=== PATIENT | female | born 1935 | race Asian ===

== ENCOUNTER 2017-09-09 16:18 | Inpatient (IN) | payer MEDICARE, MEDICAID ==
--- NOTE | 2017-09-09 16:28 | ED Physician Chart ---
ED Chief Complaint/HPI - Patient Information Date Seen:: 09/09/17 Time Seen:: 16:10 Chief Complaint:: Delusions History of Present Illness:: onset x 3 days of delusions, uncontrolled behavior, and increased confusion; no report of trauma, H/As, S/T, neck pain, C/P, SOB, Abd. Pain, A/N/V/D/c, fever, chills, or urinary s/s Historian:: Patient, EMS Review:: Nurse's Note Reviewed, Old Chart Reviewed, EMS run form Reviewed ED Review of Systems - Review of Systems General/Constitutional: No fever, No chills, No weight loss, No weakness, No diaphoresis, No edema, No loss of appetite Skin: No skin lesions, No rash, No bruising Head: No headache, No light-headedness Eyes: No loss of vision, No pain, No diplopia ENT: No earache, No nasal drainage, No sore throat, No tinnitus Neck: No neck pain, No swelling, No thyromegaly, No stiffness, No mass noted Cardio Vascular: No chest pain, No palpitations, No PND, No orthopnea, No edema Pulmonary: No SOB, No cough, No sputum, No wheezing GI: No nausea, No vomiting, No diarrhea, No pain, No melena, No hematochezia, No constipation, No hematemesis G/U: No dysuria, No frequency, No hematuria, No nacturia Batter Mixer: No vaginal discharge, No abnormal vaginal bleed, No contraction Musculoskeletal: No bone or joint pain, No back pain, No muscle pain Endocrine: No polyuria, No polydipsia Psychiatric: Prior psych history, No depression, Anxiety, No suicidal ideation, Auditory hallucination, No visual hallucination Hematopoietic: No bruising, No lymphadenopathy Allergic/Immuno: No urticaria, No angioedema Neurological: No syncope, No focal symptoms, No weakness, No paresthesia, No headache, No seizure, No dizziness, Confusion, No vertigo ED Past Medical History - Past Medical History Obtainable: Yes Past Medical History: HTN, DM, Dyslipidemia, Dementia Family History: Diabetes Melitus, HTN Social History: Non Smoker, No Alcohol, No Drug Use, , Care Facility Surgical History: None Psychiatricy History: Schizophrenia, Dementia Medication: Reviewed ED Physical Exam - Physical Examination General/Constitutional: Awake, Well-developed, well-nourished, Alert, No distress, GCS 15, Non-toxic appearing, Ambulatory Head: Atraumatic Eyes: Lids, conjuctiva normal, PERRL, EOMI Skin: Nl inspection, No rash, No skin lesions, No ecchymosis, Well hydrated, No lymphadenopathy ENMT: External ears, nose nl, TM canals nl, Nasal exam nl, Lips, teeth, gums nl , Oropharynx nl, Tonsils nl Neck: Nontender, Full ROM w/o pain, No JVD, No nuchal rigidity, No bruit, No mass, No stridor Respiratory: Nl effort/Exclusion, Clear to Auscultation, No Wheeze/Rhonchi/Rales Cardio Vascular: RRR, No murmur, gallop, rubs, NL S1 S2, Carotid/Femoral/Distal pulses equal bilaterally GI: No tenderness/rebounding/guarding, No organomegaly, No hernia, Normal BS's, Nondistended, No mass/bruits, No McBurney tenderness : No CVA tenderness Extremities: No tenderness or effusion, Full ROM, normal strength in all extremities, No edema, Normal digits & nails Neuro/Psych: Alert/oriented, DTR's symmetric, Normal sensory exam, Normal motor strength, Judgement/insight normal, Mood normal, Normal gait, No focal deficits Other Neuro/Psych comments:: Disoriented and Confused; + Delusions; no SIs; Mood/Affect: Labile Misc: Normal back, No paraspinal tenderness ED Labs/Radiology/EKG Results - Lab Results Comments:: unremarkable - EKG Interpretations Rate & Rhythm: NSR Comments:: non-specific st-t changes ED Septic Shock - . Is Septic Shock (SBP<90, OR Lactate>4 mmol\L) present?: No ED Reassessment (Disposition) - Reassessment Reassessment Condition:: Improved - Diagnosis Diagnosis:: Dx: Delusions; Dementia; Schizophrenia; Medical Clearance; Schizo-Affective Disorder - Aftercare/Follow up Instructions Aftercare/Follow-Up Instructions:: Counseled pt regarding lab results/diagnosis & need follow up, Counseled pt & family regarding lab results/diagnosis & need follow up - Patient Disposition Discharge/Transfer:: Acute Care w/in this hosp Admitted to:: [facility] Condition at Disposition:: Stable, Improved
[2017-09-09 16:46] LABS: % BASOPHILS 0.5 % (0.0-2.0); % EOSINOPHILS 0.6 % (0.0-5.0); % LYMPHOCYTES 15.7 % (20.0-50.0); % MONOCYTES 6.8 % (2.0-10.0); % NEUTROPHILS 76.4 % (40.0-80.0); EOSINOPHILE ABSOLUTE 0.1 Th/cmm (0.1-0.4); HEMATOCRIT 40.5 % (41.0-60); HEMOGLOBIN 13.6 gm/dL (12-16); LYMPHOCYTE ABSOLUTE 1.4 Th/cmm (1.5-3.0); MEAN CELL VOLUME 92.7 fl (81-100); MEAN CORPUSCULAR HEMOGLOBIN 31.2 pg (27.0-31.0); MEAN CORPUSCULAR HGB CONC 33.6 pg (28.0-36.0); MEAN PLATELET VOLUME 6.9 fl; MONOCYTE ABSOLUTE 0.6 Th/cmm (0.3-1.0); NEUTROPHILE ABSOLUTE 6.7 Th/cmm (1.8-8.0); PLATELET COUNT 305 Th/cmm (150-400); RED BLOOD COUNT 4.37 Mil/cmm (3.80-5.20); RED CELL DISTRIBUTION WIDTH 12.2 % (11.5-20.0); WHITE BLOOD COUNT 8.8 Th/cmm (4.8-10.8)
[2017-09-09 17:01] LABS: ALB/GLOB RATIO 1.6 (1.0-1.8); ALBUMIN 4.4 gm/dL (3.7-5.3); ALKALINE PHOSPHATASE 66 U/L (34-104); ANION GAP 11.6 (7.0-16.0); BILIRUBIN,TOTAL 0.3 mg/dL (0.3-1.0); BUN - UREA NITROGEN 20 mg/dL (7-25); CALCIUM SERUM 9.8 mg/dL (8.6-10.3); CARBON DIOXIDE 24.2 mEq/L (21.0-31.0); CHLORIDE 102 mEq/L (98-107); CHOLESTEROL 136 mg/dL (<200); CREATININE - SERUM 0.7 mg/dL (0.6-1.2); GLUCOSE 105 mg/dL (70-105); HDL -HIGH DENSITY LIPOPROTEIN 60 mg/dL (23-92); POTASSIUM SERUM 3.8 mEq/L (3.5-5.1); SGOT 16 U/L (13-39); SGPT/ALT 11 U/L (7-52); SODIUM SERUM 134 mEq/L (136-145); TOTAL PROTEIN,SERUM 7.1 gm/dL (6.0-8.3); TRIGLYCERIDES 80 mg/dL (<150)
[2017-09-09 17:03] LABS: ACETAMINOPHEN < 10.0 ug/mL (10.0-30.0); SALICYLATES (ASPIRIN) < 25.0 mg/L (30.0-100.0)
[2017-09-09 19:44] LABS: A1C % 5.5 % (4.0-6.0)
[2017-09-09] MEDS ORDERED: Maalox 30 mL Cup PO PRN (20:32)
[2017-09-09] MEDS ORDERED: Magnesium Hydroxide (MOM) 30 mL UDC PO PRN (20:32)
[2017-09-09 21:28] VITALS: BP 140/66
--- NOTE | 2017-09-09 23:47 | History & Physical ---
ADMIT DATE: 09/09/2017 The patient came to the Emergency Room at [facility] complaining of having delusion for the last 3 days, uncontrolled behavior including increased confusion. The patient had a complete workup done and was admitted. The patient had no fever, no chills, no rigors, and no neck pain, no vaginal discharge. PAST MEDICAL HISTORY: History of diabetes and hypertension. PHYSICAL EXAMINATION: GENERAL: Awake, alert. The patient not in acute distress, is confused. HEAD: Normal. ENT: Normal. NECK: Supple, nontender. LUNGS: Clear. CARDIOVASCULAR SYSTEM: S1 and S2 heard. he patient is disoriented, confusion, delusion. LABORATORY DATA: The patient's labs are within normal limits. EKG showed nonspecific ST-T changes. DIAGNOSES: Delusion, dementia, schizophrenia, history of hypertension, history of diabetes was made. The patient is being admitted and I will follow along with psychiatrist and control of blood sugar as well as diabetes. JOB# [id number]
[2017-09-10] MEDS: Benztropine 1 MG TAB PO SCH ×2 (08:33→16:54)
[2017-09-10] MEDS: Multivitamin Tab PO SCH (08:34)
[2017-09-10] MEDS: Atorvastatin Calcium 10 MG TAB PO SCH (08:34)
[2017-09-10] MEDS ORDERED: RISPERIDONE PO SCH (09:00)
--- NOTE | 2017-09-10 11:34 | General Progress Note ---
Subjective - Review of Systems Events since last encounter: patient is confused denies pain Objective - Results Result Diagrams: 09/09/17 16:40 09/09/17 16:40 Recent Labs: Laboratory Last Values WBC 8.8 Th/cmm (4.8-10.8) 09/09/17 16:40 RBC 4.37 Mil/cmm (3.80-5.20) 09/09/17 16:40 Hgb 13.6 gm/dL (12-16) 09/09/17 16:40 Hct 40.5 % (41.0-60) L 09/09/17 16:40 MCV 92.7 fl (81-100) 09/09/17 16:40 MCH 31.2 pg (27.0-31.0) H 09/09/17 16:40 MCHC Differential 33.6 pg (28.0-36.0) 09/09/17 16:40 RDW 12.2 % (11.5-20.0) 09/09/17 16:40 Plt Count 305 Th/cmm (150-400) 09/09/17 16:40 MPV 6.9 fl 09/09/17 16:40 Neutrophils % 76.4 % (40.0-80.0) 09/09/17 16:40 Lymphocytes % 15.7 % (20.0-50.0) L 09/09/17 16:40 Monocytes % 6.8 % (2.0-10.0) 09/09/17 16:40 Eosinophils % 0.6 % (0.0-5.0) 09/09/17 16:40 Basophils % 0.5 % (0.0-2.0) 09/09/17 16:40 Sodium 134 mEq/L (136-145) L 09/09/17 16:40 Potassium 3.8 mEq/L (3.5-5.1) 09/09/17 16:40 Chloride 102 mEq/L (98-107) 09/09/17 16:40 Carbon Dioxide 24.2 mEq/L (21.0-31.0) 09/09/17 16:40 Anion Gap 11.6 (7.0-16.0) 09/09/17 16:40 BUN 20 mg/dL (7-25) 09/09/17 16:40 Creatinine 0.7 mg/dL (0.6-1.2) 09/09/17 16:40 Est GFR ( Amer) TNP 09/09/17 16:40 Est GFR (Non-Af Amer) TNP 09/09/17 16:40 BUN/Creatinine Ratio 28.6 09/09/17 16:40 Glucose 105 mg/dL (70-105) 09/09/17 16:40 Hemoglobin A1c % 5.5 % (4.0-6.0) 09/09/17 16:40 Calcium 9.8 mg/dL (8.6-10.3) 09/09/17 16:40 Total Bilirubin 0.3 mg/dL (0.3-1.0) 09/09/17 16:40 AST 16 U/L (13-39) 09/09/17 16:40 ALT 11 U/L (7-52) 09/09/17 16:40 Alkaline Phosphatase 66 U/L (34-104) 09/09/17 16:40 Troponin I 0.01 ng/mL (0.01-0.05) 09/09/17 16:40 Total Protein 7.1 gm/dL (6.0-8.3) 09/09/17 16:40 Albumin 4.4 gm/dL (3.7-5.3) 09/09/17 16:40 Globulin 2.7 gm/dL 09/09/17 16:40 Albumin/Globulin Ratio 1.6 (1.0-1.8) 09/09/17 16:40 Triglycerides 80 mg/dL (<150) 09/09/17 16:40 Cholesterol 136 mg/dL (<200) 09/09/17 16:40 LDL Cholesterol Direct 57 mg/dL (75-193) L 09/09/17 16:40 HDL Cholesterol 60 mg/dL (23-92) 09/09/17 16:40 TSH 1.43 uIU/ml (0.34-5.60) 09/09/17 16:40 Salicylates < 25.0 mg/L (30.0-100.0) L 09/09/17 16:40 Acetaminophen < 10.0 ug/mL (10.0-30.0) L 09/09/17 16:40 Ethyl Alcohol < 10 mg/dL (0-10) 09/09/17 16:40 - Physical Exam Vitals and I&O: Vital Signs Temp 97.6 F 09/10/17 07:05 Pulse 73 09/10/17 08:33 Resp 19 09/10/17 07:05 BP 122/60 09/10/17 08:33 Pulse Ox 99 09/10/17 07:05 Intake & Output 09/09/17 09/10/17 09/10/17 18:59 06:59 18:59 Intake Total 540 420 Balance 540 420 Weight (lbs) 46.266 kg Intake: Oral 540 420 Other: # Voids 1 1 Stool Characteristics Hard Weight Source Patient stated Active Medications: Current Medications Acetaminophen (Tylenol) 650 mg PO Q4HR PRN PRN Reason: Mild Pain / Temp above 100 Stop: 11/08/17 21:28 Al Hydrox/Mg Hydrox/Simethicone (Maalox) 30 ml PO Q6H PRN PRN Reason: GI DISTRESS Stop: 11/08/17 20:31 Amlodipine Besylate (Norvasc) 10 mg PO DAILY [facility] Stop: 11/09/17 08:59 Last Admin: 09/10/17 08:33 Dose: 10 mg Atorvastatin Calcium (Lipitor) 20 mg PO DAILY [facility] Stop: 11/09/17 08:59 Last Admin: 09/10/17 08:34 Dose: 20 mg Benztropine Mesylate (Cogentin) 1 mg PO BID [facility] Stop: 11/09/17 08:59 Last Admin: 09/10/17 08:33 Dose: 1 mg Docusate Sodium (Colace) 250 mg PO DAILY [facility] Stop: 11/09/17 08:59 Last Admin: 09/10/17 08:34 Dose: 250 mg Lorazepam (Ativan) 0.5 mg PO Q4HR PRN; Protocol PRN Reason: Anxiety Stop: 10/09/17 21:28 Magnesium Hydroxide (Milk Of Magnesia) 30 ml PO DAILY PRN PRN Reason: Constipation Stop: 11/08/17 20:31 Multivitamins/Vitamin C (Theragran) 1 tab PO DAILY [facility] Stop: 11/09/17 08:59 Last Admin: 09/10/17 08:34 Dose: 1 tab Risperidone (Risperdal) 2 mg PO BID [facility]; Protocol Stop: 11/09/17 09:14 Last Admin: 09/10/17 10:23 Dose: 2 mg Zolpidem Tartrate (Ambien) 5 mg PO HS PRN PRN Reason: Insomnia Stop: 11/08/17 21:28
[2017-09-10 11:46] LABS: URINE MICROSCOPIC INDICATED? YES; URINE SOURCE CLEAN C
[2017-09-10 12:08] LABS: URINE BILIRUBIN NEGATIVE (NEGATIVE); URINE BLOOD NEGATIVE (NEGATIVE); URINE GLUCOSE (UA) NEGATIVE (NEGATIVE); URINE KETONE NEGATIVE (NEGATIVE); URINE LEUKOCYTE ESTERASE NEGATIVE (NEGATIVE); URINE NITRATE NEGATIVE (NEGATIVE); URINE PROTEIN NEGATIVE (NEGATIVE); URINE UROBILINOGEN 0.2 E.U./dL (0.2 - 1.0)
[2017-09-10 12:15] LABS: URINE CLARITY TURBID (CLEAR); URINE COLOR YELLOW
[2017-09-10 12:26] LABS: URINE BACTERIA FEW /hpf (NONE SEEN); URINE EPITHELIAL CELLS OCCASIONAL /lpf (FEW); URINE RBC NONE SEEN /hpf (0-5); URINE WBC 0-2 /hpf (0-5)
--- NOTE | 2017-09-10 22:54 | Psychosocial Evaluation ---
DATE OF SERVICE: PSYCHIATRIC INITIAL EVALUATION AND MENTAL STATUS EXAM THE PATIENT'S AGE: 82. SEX: Female. PHYSICIAN: Dr. Lai. CHIEF COMPLAINT: Agitation and striking out behavior. HISTORY OF PRESENT ILLNESS: The patient is an 82-year-old female, who was transferred from [facility] because of increased agitation and aggressive behavior. The patient has been striking out and has been aggressive and agitated towards the staff and others in the [facility]. She also was not able to follow directions. The patient also has been increasingly angry. The patient has been taking Risperdal, but it has not been helping much. She has history of schizoaffective disorder. PAST PSYCHIATRIC HISTORY: The patient has history of schizoaffective disorder with multiple hospitalizations. MEDICATION: Her [facility] medication is Risperdal and Cogentin. PAST MEDICAL HISTORY: The patient has hypertension and diabetes mellitus. SOCIAL HISTORY: The patient lives in [facility]. No known alcohol or drug use. ALLERGIES: No known allergies. MENTAL STATUS EXAMINATION: The patient appears her stated age. Anxious. Angry. Irritable mood. Thought processes are circumstantial and tangential, but no flight of ideas. The patient is alert and oriented to time, place, person, and situation. Intact immediate, recent and remote memories. Poor insight and poor judgment. ASSESSMENT: PRIMARY DIAGNOSIS: Schizoaffective disorder, bipolar type, severe, with psychotic features. TREATMENT PLAN: We will monitor the patient's behavior and condition closely. We will discontinue Risperdal and we will start Seroquel 25 mg twice a day. We will adjust the dose and we will monitor her condition and her behavior closely. ESTIMATED LENGTH OF STAY: 5-7 days. THE PATIENT'S STRENGTHS AND WEAKNESSES: The patient's strength is not clear at this time. Weaknesses is poor impulse control. AFTER DISCHARGE PLAN: The patient will return to [place] and outpatient treatment and followup will continue as an outpatient. [facility]# [id number]
[2017-09-11] MEDS: Atorvastatin Calcium 10 MG TAB PO SCH (09:16)
[2017-09-11] MEDS: Multivitamin Tab PO SCH (09:27)
[2017-09-11] MEDS: Benztropine 1 MG TAB PO SCH ×2 (09:27→17:15)
[2017-09-11 21:50] LABS: AMPHETAMINE URINE NEGATIVE (NEGATIVE); BARBITURATES URINE NEGATIVE (NEGATIVE); PHENCYCLIDINE (PCP) URINE NEGATIVE (NEGATIVE)
[2017-09-11 21:51] LABS: BENZODIAZEPINES QUAL URINE NEGATIVE (NEGATIVE); CANNABINOID THC NEGATIVE (NEGATIVE); COCAINE METABOLITE QUAL URINE NEGATIVE (NEGATIVE); METHADONE URINE NEGATIVE (NEGATIVE); METHAMPHETAMINES QUAL URINE NEGATIVE (NEGATIVE); OPIATES (MORPHINE) QUAL. URINE NEGATIVE (NEGATIVE); TRICYCLICS (TCA) QUAL. URINE NEGATIVE (NEGATIVE)
--- NOTE | 2017-09-11 22:13 | Progress Notes ---
DATE: SUBJECTIVE: Chart reviewed and the patient interviewed. Also discussed the patient's condition with the staff and reviewed records and labs. The patient is calm and cooperative. The patient is easily agitated and talking less than when she first came in. The patient also still needs redirections. She is still in angry and in irritable mood. Otherwise, the patient started to take Risperdal 1 mg twice a day with no side effects. ASSESSMENT: The patient is still agitated and still needs redirections. TREATMENT PLAN: Continue to monitor her behavior and her condition closely. Also, we will increase Risperdal to 1.5 mg twice a day. Also, continue to monitor behavior and follow up closely. [facility]# [id number]
[2017-09-12] MEDS: Multivitamin Tab PO SCH (08:21)
[2017-09-12] MEDS: Benztropine 1 MG TAB PO SCH ×2 (08:21→17:24)
[2017-09-12] MEDS: Atorvastatin Calcium 10 MG TAB PO SCH (09:23)
--- NOTE | 2017-09-12 21:18 | Progress Notes ---
DATE: SUBJECTIVE: Chart reviewed and the patient interviewed. Also discussed the patient's condition with the staff and reviewed records and labs. The patient is still delusional and she thinks that she is waiting for transportation. The patient also is still confused and restless, but at the same time, pleasant. The patient also still has mood swings. Otherwise, the patient is compliant with taking her medications with no side effects of medications. ASSESSMENT: The patient is still confused. TREATMENT PLAN: Continue Risperdal 2 mg twice a day. Also, continue monitoring behavior and continue to follow up closely. JOB# [id number]
[2017-09-13] MEDS: Atorvastatin Calcium 10 MG TAB PO SCH (09:29)
[2017-09-13] MEDS: Multivitamin Tab PO SCH (09:29)
[2017-09-13] MEDS: Benztropine 1 MG TAB PO SCH ×2 (09:31→17:27)
--- NOTE | 2017-09-13 11:48 | General Progress Note ---
Subjective - Review of Systems Events since last encounter: patient confused disorganized Objective - Results Result Diagrams: 09/09/17 16:40 09/09/17 16:40 Recent Labs: Laboratory Last Values WBC 8.8 Th/cmm (4.8-10.8) 09/09/17 16:40 RBC 4.37 Mil/cmm (3.80-5.20) 09/09/17 16:40 Hgb 13.6 gm/dL (12-16) 09/09/17 16:40 Hct 40.5 % (41.0-60) L 09/09/17 16:40 MCV 92.7 fl (81-100) 09/09/17 16:40 MCH 31.2 pg (27.0-31.0) H 09/09/17 16:40 MCHC Differential 33.6 pg (28.0-36.0) 09/09/17 16:40 RDW 12.2 % (11.5-20.0) 09/09/17 16:40 Plt Count 305 Th/cmm (150-400) 09/09/17 16:40 MPV 6.9 fl 09/09/17 16:40 Neutrophils % 76.4 % (40.0-80.0) 09/09/17 16:40 Lymphocytes % 15.7 % (20.0-50.0) L 09/09/17 16:40 Monocytes % 6.8 % (2.0-10.0) 09/09/17 16:40 Eosinophils % 0.6 % (0.0-5.0) 09/09/17 16:40 Basophils % 0.5 % (0.0-2.0) 09/09/17 16:40 Sodium 134 mEq/L (136-145) L 09/09/17 16:40 Potassium 3.8 mEq/L (3.5-5.1) 09/09/17 16:40 Chloride 102 mEq/L (98-107) 09/09/17 16:40 Carbon Dioxide 24.2 mEq/L (21.0-31.0) 09/09/17 16:40 Anion Gap 11.6 (7.0-16.0) 09/09/17 16:40 BUN 20 mg/dL (7-25) 09/09/17 16:40 Creatinine 0.7 mg/dL (0.6-1.2) 09/09/17 16:40 Est GFR ( Amer) TNP 09/09/17 16:40 Est GFR (Non-Af Amer) TNP 09/09/17 16:40 BUN/Creatinine Ratio 28.6 09/09/17 16:40 Glucose 105 mg/dL (70-105) 09/09/17 16:40 Hemoglobin A1c % 5.5 % (4.0-6.0) 09/09/17 16:40 Calcium 9.8 mg/dL (8.6-10.3) 09/09/17 16:40 Total Bilirubin 0.3 mg/dL (0.3-1.0) 09/09/17 16:40 AST 16 U/L (13-39) 09/09/17 16:40 ALT 11 U/L (7-52) 09/09/17 16:40 Alkaline Phosphatase 66 U/L (34-104) 09/09/17 16:40 Troponin I 0.01 ng/mL (0.01-0.05) 09/09/17 16:40 Total Protein 7.1 gm/dL (6.0-8.3) 09/09/17 16:40 Albumin 4.4 gm/dL (3.7-5.3) 09/09/17 16:40 Globulin 2.7 gm/dL 09/09/17 16:40 Albumin/Globulin Ratio 1.6 (1.0-1.8) 09/09/17 16:40 Triglycerides 80 mg/dL (<150) 09/09/17 16:40 Cholesterol 136 mg/dL (<200) 09/09/17 16:40 LDL Cholesterol Direct 57 mg/dL (75-193) L 09/09/17 16:40 HDL Cholesterol 60 mg/dL (23-92) 09/09/17 16:40 TSH 1.43 uIU/ml (0.34-5.60) 09/09/17 16:40 Urine Source CLEAN C 09/10/17 11:35 Urine Color YELLOW 09/10/17 11:35 Urine Clarity TURBID (CLEAR) H 09/10/17 11:35 Urine pH 6.0 (4.6 - 8.0) 09/10/17 11:35 Ur Specific [place] 1.025 (1.005-1.030) 09/10/17 11:35 Urine Protein NEGATIVE mg/dL (NEGATIVE) 09/10/17 11:35 Urine Glucose (UA) NEGATIVE mg/dL (NEGATIVE) 09/10/17 11:35 Urine Ketones NEGATIVE mg/dL (NEGATIVE) 09/10/17 11:35 Urine Blood NEGATIVE (NEGATIVE) 09/10/17 11:35 Urine Nitrate NEGATIVE (NEGATIVE) 09/10/17 11:35 Urine Bilirubin NEGATIVE (NEGATIVE) 09/10/17 11:35 Urine Urobilinogen 0.2 E.U./dL (0.2 - 1.0) 09/10/17 11:35 Ur Leukocyte Esterase NEGATIVE (NEGATIVE) 09/10/17 11:35 Urine RBC NONE SEEN /hpf (0-5) 09/10/17 11:35 Urine WBC 0-2 /hpf (0-5) 09/10/17 11:35 Ur Epithelial Cells OCCASIONAL /lpf (FEW) 09/10/17 11:35 Urine Bacteria FEW /hpf (NONE SEEN) 09/10/17 11:35 Urine Mucus FEW /lpf (FEW) 09/10/17 11:35 Salicylates < 25.0 mg/L (30.0-100.0) L 09/09/17 16:40 Urine Opiates Screen NEGATIVE (NEGATIVE) 09/11/17 21:15 Urine Methadone Screen NEGATIVE (NEGATIVE) 09/11/17 21:15 Acetaminophen < 10.0 ug/mL (10.0-30.0) L 09/09/17 16:40 Ur Barbiturates Screen NEGATIVE (NEGATIVE) 09/11/17 21:15 Ur Tricyclics Screen NEGATIVE (NEGATIVE) 09/11/17 21:15 Ur Phencyclidine Scrn NEGATIVE (NEGATIVE) 09/11/17 21:15 Amphetamines Screen NEGATIVE (NEGATIVE) 09/11/17 21:15 U Methamphetamines Scrn NEGATIVE (NEGATIVE) 09/11/17 21:15 U Benzodiazepines Scrn NEGATIVE (NEGATIVE) 09/11/17 21:15 U Cocaine Metab Screen NEGATIVE (NEGATIVE) 09/11/17 21:15 U Cannabinoids Screen NEGATIVE (NEGATIVE) 09/11/17 21:15 Ethyl Alcohol < 10 mg/dL (0-10) 09/09/17 16:40 RPR NONREACTIVE (NONREACTIVE) 09/09/17 16:40 - Physical Exam Vitals and I&O: Vital Signs Temp 97.6 F 09/13/17 06:45 Pulse 72 09/13/17 09:29 Resp 18 09/13/17 06:45 BP 145/68 09/13/17 09:29 Pulse Ox 97 09/13/17 06:45 Intake & Output 09/12/17 09/13/17 09/13/17 18:59 06:59 18:59 Intake Total 1000 Balance 1000 Intake: Oral 1000 Other: # Voids 1 Active Medications: Current Medications Acetaminophen (Tylenol) 650 mg PO Q4HR PRN PRN Reason: Mild Pain / Temp above 100 Stop: 11/08/17 21:28 Al Hydrox/Mg Hydrox/Simethicone (Maalox) 30 ml PO Q6H PRN PRN Reason: GI DISTRESS Stop: 11/08/17 20:31 Amlodipine Besylate (Norvasc) 10 mg PO DAILY [facility] Stop: 11/09/17 08:59 Last Admin: 09/13/17 09:29 Dose: 10 mg Atorvastatin Calcium (Lipitor) 20 mg PO DAILY [facility] Stop: 11/09/17 08:59 Last Admin: 09/13/17 09:29 Dose: 20 mg Benztropine Mesylate (Cogentin) 1 mg PO BID [facility] Stop: 11/09/17 08:59 Last Admin: 09/13/17 09:31 Dose: 1 mg Docusate Sodium (Colace) 250 mg PO DAILY [facility] Stop: 11/09/17 08:59 Last Admin: 09/13/17 09:31 Dose: 250 mg Lorazepam (Ativan) 0.5 mg PO Q4HR PRN; Protocol PRN Reason: Anxiety Stop: 10/09/17 21:28 Magnesium Hydroxide (Milk Of Magnesia) 30 ml PO DAILY PRN PRN Reason: Constipation Stop: 11/08/17 20:31 Multivitamins/Vitamin C (Theragran) 1 tab PO DAILY [facility] Stop: 11/09/17 08:59 Last Admin: 09/13/17 09:29 Dose: 1 tab Risperidone (Risperdal) 2 mg PO BID [facility]; Protocol Stop: 11/09/17 09:14 Last Admin: 09/13/17 09:29 Dose: 2 mg Zolpidem Tartrate (Ambien) 5 mg PO HS PRN PRN Reason: Insomnia Stop: 08/19/18 21:28
--- NOTE | 2017-09-13 19:32 | Progress Notes ---
DATE: Chart reviewed and the patient interviewed. Also discussed the patient's condition with the staff and reviewed records and labs. The patient is still anxious and is still guarded and withdrawn. The patient also is staying by herself and is still isolative. The patient also is still thinking that there is transportation waiting for her. On the other hand, the patient is not as agitated as when she first admitted to the hospital. She also continued to comply with taking medications with no side effects. ASSESSMENT: The patient is still paranoid and confused. TREATMENT PLAN: Continue Risperdal 2 mg twice a day. Also, continue adjusting psychotropic medications and continue to work on behavioral modifications and followup. JOB# [id number]
[2017-09-14] MEDS: Atorvastatin Calcium 10 MG TAB PO SCH (09:44)
[2017-09-14] MEDS: Multivitamin Tab PO SCH (09:44)
[2017-09-14] MEDS: Benztropine 1 MG TAB PO SCH ×2 (09:45→17:06)
--- NOTE | 2017-09-14 16:03 | General Progress Note ---
Subjective - Review of Systems Events since last encounter: patient still paranoid Objective - Results Result Diagrams: 09/09/17 16:40 09/09/17 16:40 Recent Labs: Laboratory Last Values WBC 8.8 Th/cmm (4.8-10.8) 09/09/17 16:40 RBC 4.37 Mil/cmm (3.80-5.20) 09/09/17 16:40 Hgb 13.6 gm/dL (12-16) 09/09/17 16:40 Hct 40.5 % (41.0-60) L 09/09/17 16:40 MCV 92.7 fl (81-100) 09/09/17 16:40 MCH 31.2 pg (27.0-31.0) H 09/09/17 16:40 MCHC Differential 33.6 pg (28.0-36.0) 09/09/17 16:40 RDW 12.2 % (11.5-20.0) 09/09/17 16:40 Plt Count 305 Th/cmm (150-400) 09/09/17 16:40 MPV 6.9 fl 09/09/17 16:40 Neutrophils % 76.4 % (40.0-80.0) 09/09/17 16:40 Lymphocytes % 15.7 % (20.0-50.0) L 09/09/17 16:40 Monocytes % 6.8 % (2.0-10.0) 09/09/17 16:40 Eosinophils % 0.6 % (0.0-5.0) 09/09/17 16:40 Basophils % 0.5 % (0.0-2.0) 09/09/17 16:40 Sodium 134 mEq/L (136-145) L 09/09/17 16:40 Potassium 3.8 mEq/L (3.5-5.1) 09/09/17 16:40 Chloride 102 mEq/L (98-107) 09/09/17 16:40 Carbon Dioxide 24.2 mEq/L (21.0-31.0) 09/09/17 16:40 Anion Gap 11.6 (7.0-16.0) 09/09/17 16:40 BUN 20 mg/dL (7-25) 09/09/17 16:40 Creatinine 0.7 mg/dL (0.6-1.2) 09/09/17 16:40 Est GFR ( Amer) TNP 09/09/17 16:40 Est GFR (Non-Af Amer) TNP 09/09/17 16:40 BUN/Creatinine Ratio 28.6 09/09/17 16:40 Glucose 105 mg/dL (70-105) 09/09/17 16:40 Hemoglobin A1c % 5.5 % (4.0-6.0) 09/09/17 16:40 Calcium 9.8 mg/dL (8.6-10.3) 09/09/17 16:40 Total Bilirubin 0.3 mg/dL (0.3-1.0) 09/09/17 16:40 AST 16 U/L (13-39) 09/09/17 16:40 ALT 11 U/L (7-52) 09/09/17 16:40 Alkaline Phosphatase 66 U/L (34-104) 09/09/17 16:40 Troponin I 0.01 ng/mL (0.01-0.05) 09/09/17 16:40 Total Protein 7.1 gm/dL (6.0-8.3) 09/09/17 16:40 Albumin 4.4 gm/dL (3.7-5.3) 09/09/17 16:40 Globulin 2.7 gm/dL 09/09/17 16:40 Albumin/Globulin Ratio 1.6 (1.0-1.8) 09/09/17 16:40 Triglycerides 80 mg/dL (<150) 09/09/17 16:40 Cholesterol 136 mg/dL (<200) 09/09/17 16:40 LDL Cholesterol Direct 57 mg/dL (75-193) L 09/09/17 16:40 HDL Cholesterol 60 mg/dL (23-92) 09/09/17 16:40 TSH 1.43 uIU/ml (0.34-5.60) 09/09/17 16:40 Urine Source CLEAN C 09/10/17 11:35 Urine Color YELLOW 09/10/17 11:35 Urine Clarity TURBID (CLEAR) H 09/10/17 11:35 Urine pH 6.0 (4.6 - 8.0) 09/10/17 11:35 Ur Specific [place] 1.025 (1.005-1.030) 09/10/17 11:35 Urine Protein NEGATIVE mg/dL (NEGATIVE) 09/10/17 11:35 Urine Glucose (UA) NEGATIVE mg/dL (NEGATIVE) 09/10/17 11:35 Urine Ketones NEGATIVE mg/dL (NEGATIVE) 09/10/17 11:35 Urine Blood NEGATIVE (NEGATIVE) 09/10/17 11:35 Urine Nitrate NEGATIVE (NEGATIVE) 09/10/17 11:35 Urine Bilirubin NEGATIVE (NEGATIVE) 09/10/17 11:35 Urine Urobilinogen 0.2 E.U./dL (0.2 - 1.0) 09/10/17 11:35 Ur Leukocyte Esterase NEGATIVE (NEGATIVE) 09/10/17 11:35 Urine RBC NONE SEEN /hpf (0-5) 09/10/17 11:35 Urine WBC 0-2 /hpf (0-5) 09/10/17 11:35 Ur Epithelial Cells OCCASIONAL /lpf (FEW) 09/10/17 11:35 Urine Bacteria FEW /hpf (NONE SEEN) 09/10/17 11:35 Urine Mucus FEW /lpf (FEW) 09/10/17 11:35 Salicylates < 25.0 mg/L (30.0-100.0) L 09/09/17 16:40 Urine Opiates Screen NEGATIVE (NEGATIVE) 09/11/17 21:15 Urine Methadone Screen NEGATIVE (NEGATIVE) 09/11/17 21:15 Acetaminophen < 10.0 ug/mL (10.0-30.0) L 09/09/17 16:40 Ur Barbiturates Screen NEGATIVE (NEGATIVE) 09/11/17 21:15 Ur Tricyclics Screen NEGATIVE (NEGATIVE) 09/11/17 21:15 Ur Phencyclidine Scrn NEGATIVE (NEGATIVE) 09/11/17 21:15 Amphetamines Screen NEGATIVE (NEGATIVE) 09/11/17 21:15 U Methamphetamines Scrn NEGATIVE (NEGATIVE) 09/11/17 21:15 U Benzodiazepines Scrn NEGATIVE (NEGATIVE) 09/11/17 21:15 U Cocaine Metab Screen NEGATIVE (NEGATIVE) 09/11/17 21:15 U Cannabinoids Screen NEGATIVE (NEGATIVE) 09/11/17 21:15 Ethyl Alcohol < 10 mg/dL (0-10) 09/09/17 16:40 RPR NONREACTIVE (NONREACTIVE) 09/09/17 16:40 - Physical Exam Vitals and I&O: Vital Signs Temp 98.6 F 09/14/17 14:25 Pulse 66 09/14/17 14:25 Resp 20 09/14/17 14:25 BP 131/57 09/14/17 14:25 Pulse Ox 96 09/14/17 14:25 Intake & Output 09/13/17 09/14/17 09/14/17 18:59 06:59 18:59 Intake Total 1200 860 Balance 1200 860 Intake: Oral 1200 860 Other: # Voids 3 2 Active Medications: Current Medications Acetaminophen (Tylenol) 650 mg PO Q4HR PRN PRN Reason: Mild Pain / Temp above 100 Stop: 11/08/17 21:28 Al Hydrox/Mg Hydrox/Simethicone (Maalox) 30 ml PO Q6H PRN PRN Reason: GI DISTRESS Stop: 11/08/17 20:31 Amlodipine Besylate (Norvasc) 10 mg PO DAILY [facility] Stop: 11/09/17 08:59 Last Admin: 09/14/17 09:44 Dose: 10 mg Atorvastatin Calcium (Lipitor) 20 mg PO DAILY [facility] Stop: 11/09/17 08:59 Last Admin: 09/14/17 09:44 Dose: 20 mg Benztropine Mesylate (Cogentin) 1 mg PO BID [facility] Stop: 11/09/17 08:59 Last Admin: 09/14/17 09:45 Dose: 1 mg Docusate Sodium (Colace) 250 mg PO DAILY [facility] Stop: 11/09/17 08:59 Last Admin: 09/14/17 09:43 Dose: 250 mg Lorazepam (Ativan) 0.5 mg PO Q4HR PRN; Protocol PRN Reason: Anxiety Stop: 10/09/17 21:28 Magnesium Hydroxide (Milk Of Magnesia) 30 ml PO DAILY PRN PRN Reason: Constipation Stop: 11/08/17 20:31 Multivitamins/Vitamin C (Theragran) 1 tab PO DAILY [facility] Stop: 11/09/17 08:59 Last Admin: 09/14/17 09:44 Dose: 1 tab Risperidone (Risperdal) 2 mg PO BID [facility]; Protocol Stop: 11/09/17 09:14 Last Admin: 09/14/17 09:44 Dose: 2 mg Zolpidem Tartrate (Ambien) 5 mg PO HS PRN PRN Reason: Insomnia Stop: 11/08/17 21:28
--- NOTE | 2017-09-15 03:43 | Progress Notes ---
DATE: 09/14/[address] Lai. Case was discussed with staff of the patient, reviewed records. This is an 82-year-old female who was admitted on 09/09/2017 because of agitation, striking out, aggressive behavior and psychosis. She came from [place]. She is still unpredictable, impulsive, needing redirection. We have reviewed medication, no side effects, no sedation, and no nausea. She continues to be internally preoccupied. Continues to have poor insight and unable to provide safe plan for self-care. We will continue the patient milieu therapy, and adjust medications. JOB# [id number]
[2017-09-15] MEDS: Multivitamin Tab PO SCH (08:43)
[2017-09-15] MEDS: Atorvastatin Calcium 10 MG TAB PO SCH (08:43)
[2017-09-15] MEDS: Benztropine 1 MG TAB PO SCH ×2 (08:44→16:52)
--- NOTE | 2017-09-15 21:31 | General Progress Note ---
Subjective - Review of Systems Service Date: 09/15/17 Subjective: awake, resting no apparent distress Objective - Results Result Diagrams: 09/09/17 16:40 09/09/17 16:40 Recent Labs: Laboratory Last Values WBC 8.8 Th/cmm (4.8-10.8) 09/09/17 16:40 RBC 4.37 Mil/cmm (3.80-5.20) 09/09/17 16:40 Hgb 13.6 gm/dL (12-16) 09/09/17 16:40 Hct 40.5 % (41.0-60) L 09/09/17 16:40 MCV 92.7 fl (81-100) 09/09/17 16:40 MCH 31.2 pg (27.0-31.0) H 09/09/17 16:40 MCHC Differential 33.6 pg (28.0-36.0) 09/09/17 16:40 RDW 12.2 % (11.5-20.0) 09/09/17 16:40 Plt Count 305 Th/cmm (150-400) 09/09/17 16:40 MPV 6.9 fl 09/09/17 16:40 Neutrophils % 76.4 % (40.0-80.0) 09/09/17 16:40 Lymphocytes % 15.7 % (20.0-50.0) L 09/09/17 16:40 Monocytes % 6.8 % (2.0-10.0) 09/09/17 16:40 Eosinophils % 0.6 % (0.0-5.0) 09/09/17 16:40 Basophils % 0.5 % (0.0-2.0) 09/09/17 16:40 Sodium 134 mEq/L (136-145) L 09/09/17 16:40 Potassium 3.8 mEq/L (3.5-5.1) 09/09/17 16:40 Chloride 102 mEq/L (98-107) 09/09/17 16:40 Carbon Dioxide 24.2 mEq/L (21.0-31.0) 09/09/17 16:40 Anion Gap 11.6 (7.0-16.0) 09/09/17 16:40 BUN 20 mg/dL (7-25) 09/09/17 16:40 Creatinine 0.7 mg/dL (0.6-1.2) 09/09/17 16:40 Est GFR ( Amer) TNP 09/09/17 16:40 Est GFR (Non-Af Amer) TNP 09/09/17 16:40 BUN/Creatinine Ratio 28.6 09/09/17 16:40 Glucose 105 mg/dL (70-105) 09/09/17 16:40 POC Glucose 103 MG/DL (70 - 105) 09/14/17 21:26 Hemoglobin A1c % 5.5 % (4.0-6.0) 09/09/17 16:40 Calcium 9.8 mg/dL (8.6-10.3) 09/09/17 16:40 Total Bilirubin 0.3 mg/dL (0.3-1.0) 09/09/17 16:40 AST 16 U/L (13-39) 09/09/17 16:40 ALT 11 U/L (7-52) 09/09/17 16:40 Alkaline Phosphatase 66 U/L (34-104) 09/09/17 16:40 Troponin I 0.01 ng/mL (0.01-0.05) 09/09/17 16:40 Total Protein 7.1 gm/dL (6.0-8.3) 09/09/17 16:40 Albumin 4.4 gm/dL (3.7-5.3) 09/09/17 16:40 Globulin 2.7 gm/dL 09/09/17 16:40 Albumin/Globulin Ratio 1.6 (1.0-1.8) 09/09/17 16:40 Triglycerides 80 mg/dL (<150) 09/09/17 16:40 Cholesterol 136 mg/dL (<200) 09/09/17 16:40 LDL Cholesterol Direct 57 mg/dL (75-193) L 09/09/17 16:40 HDL Cholesterol 60 mg/dL (23-92) 09/09/17 16:40 TSH 1.43 uIU/ml (0.34-5.60) 09/09/17 16:40 Urine Source CLEAN C 09/10/17 11:35 Urine Color YELLOW 09/10/17 11:35 Urine Clarity TURBID (CLEAR) H 09/10/17 11:35 Urine pH 6.0 (4.6 - 8.0) 09/10/17 11:35 Ur Specific [employer] 1.025 (1.005-1.030) 09/10/17 11:35 Urine Protein NEGATIVE mg/dL (NEGATIVE) 09/10/17 11:35 Urine Glucose (UA) NEGATIVE mg/dL (NEGATIVE) 09/10/17 11:35 Urine Ketones NEGATIVE mg/dL (NEGATIVE) 09/10/17 11:35 Urine Blood NEGATIVE (NEGATIVE) 09/10/17 11:35 Urine Nitrate NEGATIVE (NEGATIVE) 09/10/17 11:35 Urine Bilirubin NEGATIVE (NEGATIVE) 09/10/17 11:35 Urine Urobilinogen 0.2 E.U./dL (0.2 - 1.0) 09/10/17 11:35 Ur Leukocyte Esterase NEGATIVE (NEGATIVE) 09/10/17 11:35 Urine RBC NONE SEEN /hpf (0-5) 09/10/17 11:35 Urine WBC 0-2 /hpf (0-5) 09/10/17 11:35 Ur Epithelial Cells OCCASIONAL /lpf (FEW) 09/10/17 11:35 Urine Bacteria FEW /hpf (NONE SEEN) 09/10/17 11:35 Urine Mucus FEW /lpf (FEW) 09/10/17 11:35 Salicylates < 25.0 mg/L (30.0-100.0) L 09/09/17 16:40 Urine Opiates Screen NEGATIVE (NEGATIVE) 09/11/17 21:15 Urine Methadone Screen NEGATIVE (NEGATIVE) 09/11/17 21:15 Acetaminophen < 10.0 ug/mL (10.0-30.0) L 09/09/17 16:40 Ur Barbiturates Screen NEGATIVE (NEGATIVE) 09/11/17 21:15 Ur Tricyclics Screen NEGATIVE (NEGATIVE) 09/11/17 21:15 Ur Phencyclidine Scrn NEGATIVE (NEGATIVE) 09/11/17 21:15 Amphetamines Screen NEGATIVE (NEGATIVE) 09/11/17 21:15 U Methamphetamines Scrn NEGATIVE (NEGATIVE) 09/11/17 21:15 U Benzodiazepines Scrn NEGATIVE (NEGATIVE) 09/11/17 21:15 U Cocaine Metab Screen NEGATIVE (NEGATIVE) 09/11/17 21:15 U Cannabinoids Screen NEGATIVE (NEGATIVE) 09/11/17 21:15 Ethyl Alcohol < 10 mg/dL (0-10) 09/09/17 16:40 RPR NONREACTIVE (NONREACTIVE) 09/09/17 16:40 - Physical Exam Vitals and I&O: Vital Signs Temp 96.7 F 09/15/17 19:52 Pulse 77 09/15/17 19:52 Resp 20 09/15/17 19:52 BP 130/68 09/15/17 19:52 Pulse Ox 95 09/15/17 19:52 Intake & Output 09/15/17 09/15/17 09/16/17 06:59 18:59 06:59 Intake Total 480 180 Balance 480 180 Intake: Oral 480 180 Other: # Voids 2 1 # Bowel Movements 0 Active Medications: Current Medications Acetaminophen (Tylenol) 650 mg PO Q4HR PRN PRN Reason: Mild Pain / Temp above 100 Stop: 11/08/17 21:28 Al Hydrox/Mg Hydrox/Simethicone (Maalox) 30 ml PO Q6H PRN PRN Reason: GI DISTRESS Stop: 11/08/17 20:31 Amlodipine Besylate (Norvasc) 10 mg PO DAILY [facility] Stop: 11/09/17 08:59 Last Admin: 09/15/17 08:44 Dose: 10 mg Atorvastatin Calcium (Lipitor) 20 mg PO DAILY [facility] Stop: 11/09/17 08:59 Last Admin: 09/15/17 08:43 Dose: 20 mg Benztropine Mesylate (Cogentin) 1 mg PO BID [facility] Stop: 11/09/17 08:59 Last Admin: 09/15/17 16:52 Dose: 1 mg Docusate Sodium (Colace) 250 mg PO DAILY [facility] Stop: 11/09/17 08:59 Last Admin: 09/15/17 08:43 Dose: 250 mg Lorazepam (Ativan) 0.5 mg PO Q4HR PRN; Protocol PRN Reason: Anxiety Stop: 10/09/17 21:28 Magnesium Hydroxide (Milk Of Magnesia) 30 ml PO DAILY PRN PRN Reason: Constipation Stop: 11/08/17 20:31 Last Admin: 09/15/17 11:13 Dose: 30 ml Multivitamins/Vitamin C (Theragran) 1 tab PO DAILY [facility] Stop: 11/09/17 08:59 Last Admin: 09/15/17 08:43 Dose: 1 tab Risperidone (Risperdal) 2 mg PO BID [facility]; Protocol Stop: 11/09/17 09:14 Last Admin: 09/15/17 16:51 Dose: 2 mg Zolpidem Tartrate (Ambien) 5 mg PO HS PRN PRN Reason: Insomnia Stop: 11/08/17 21:28 General: Alert, No acute distress HEENT: PERRLA Neck: Supple Cardiovascular: Regular rate Lungs: Clear to auscultation Abdomen: Bowel sounds, Soft Assessment/Plan - Problem List Patient Problems: All Active Problems Psychosis (Acute) F29 - Plan Plan: cpm Nutritional Asmnt/Malnutr-PDOC - Dietary Evaluation Malnutrition Findings (Please click <Entered> for more info): Nutritional Asmnt/Malnutrition Start: 09/15/17 14: 01 Text: Status: Complete Freq: Protocol: Document 09/15/17 14:01 MELE (Rec: 09/15/17 14:08 MELE [email or web address]) Nutritional Asmnt/Malnutrition Patient General Information Nutritional Screening Moderate Risk Diagnosis increased agitation Pertinent Medical Hx/Surgical Hx DM, HTN Subjective Information Pt seen sleeping in bed at time of visit. Per EMR, PO intake 100% of meals. Current Diet Order/ Nutrition Support regular Pertinent Medications colace, theragran Pertinent Labs 09/09 Na 134, glucose 105, A1c 5.5 Nutritional Hx/Data Height 1.52 m Height (Calculated Centimeters) 152.4 Current Weight (lbs) 46.266 kg Weight (Calculated Kilograms) 46.3 Weight (Calculated Grams) 66896.4 [place] Body Weight 100 Body Mass Index (BMI) 19.9 Weight Status Approriate GI Symptoms GI Symptoms None Last BM not indicated Difficult in: None Skin Integrity/Comment: intact Current %PO Good (75-100%) Estimated Nutritional Goals BEE in Kcals: Using Current wt Calories/Kcals/Kg 25-30 Kcals Calculated 8125-0038 Protein: Using Current wt Protein g/k Protein Calculated 46 Fluid: ml 1150-1380ml (1ml/kcal) Nutritional Problem No current Nutrition Prob Problem N/A Malnutrition Alert Is there a minimum of two criteria No selected? Query Text:Check all the applicable criteria. A minimum of two criteria are recommended for diagnosis of either severe or non-severe malnutrition. Malnutrition Related to Morbid Obesity Malnutrition related to morbid obesity No Intervention/Recommendation Comments 1. Continue with regular diet as ordered. 2. Monitor PO intake, wt, labs and skin integrity 3. F/U as low risk in 7 days, 09/22 Expected Outcomes/Goals Expected Outcomes/Goals 1. PO intake to meet at least 75% of nutritional needs. 2. Wt stability, skin to remain intact, labs to approach WNL.
--- NOTE | 2017-09-16 00:45 | Progress Notes ---
DATE: 09/15/[address] Lai. SUBJECTIVE: Case was discussed with staff of the patient and reviewed records and labs. The patient continues to be anxious, guarded, withdrawn, continues to isolate herself. Continues to have poor insight, unable to make safe plan for self-care. She is being paranoid, confused. No side effects with the medication, no sedation, no nausea, no extrapyramidal symptoms. We will continue the patient in group therapy, milieu therapy, and adjust the medication as needed. JOB# [id number]
[2017-09-16] MEDS: Multivitamin Tab PO SCH (08:34)
[2017-09-16] MEDS: Atorvastatin Calcium 10 MG TAB PO SCH (08:34)
[2017-09-16] MEDS: Benztropine 1 MG TAB PO SCH ×2 (08:35→16:07)
--- NOTE | 2017-09-16 15:15 | General Progress Note ---
Subjective - Review of Systems Events since last encounter: awake confused Subjective: awake, resting no apparent distress Objective - Results Result Diagrams: 09/09/17 16:40 09/09/17 16:40 Recent Labs: Laboratory Last Values WBC 8.8 Th/cmm (4.8-10.8) 09/09/17 16:40 RBC 4.37 Mil/cmm (3.80-5.20) 09/09/17 16:40 Hgb 13.6 gm/dL (12-16) 09/09/17 16:40 Hct 40.5 % (41.0-60) L 09/09/17 16:40 MCV 92.7 fl (81-100) 09/09/17 16:40 MCH 31.2 pg (27.0-31.0) H 09/09/17 16:40 MCHC Differential 33.6 pg (28.0-36.0) 09/09/17 16:40 RDW 12.2 % (11.5-20.0) 09/09/17 16:40 Plt Count 305 Th/cmm (150-400) 09/09/17 16:40 MPV 6.9 fl 09/09/17 16:40 Neutrophils % 76.4 % (40.0-80.0) 09/09/17 16:40 Lymphocytes % 15.7 % (20.0-50.0) L 09/09/17 16:40 Monocytes % 6.8 % (2.0-10.0) 09/09/17 16:40 Eosinophils % 0.6 % (0.0-5.0) 09/09/17 16:40 Basophils % 0.5 % (0.0-2.0) 09/09/17 16:40 Sodium 134 mEq/L (136-145) L 09/09/17 16:40 Potassium 3.8 mEq/L (3.5-5.1) 09/09/17 16:40 Chloride 102 mEq/L (98-107) 09/09/17 16:40 Carbon Dioxide 24.2 mEq/L (21.0-31.0) 09/09/17 16:40 Anion Gap 11.6 (7.0-16.0) 09/09/17 16:40 BUN 20 mg/dL (7-25) 09/09/17 16:40 Creatinine 0.7 mg/dL (0.6-1.2) 09/09/17 16:40 Est GFR ( Amer) TNP 09/09/17 16:40 Est GFR (Non-Af Amer) TNP 09/09/17 16:40 BUN/Creatinine Ratio 28.6 09/09/17 16:40 Glucose 105 mg/dL (70-105) 09/09/17 16:40 POC Glucose 103 MG/DL (70 - 105) 09/14/17 21:26 Hemoglobin A1c % 5.5 % (4.0-6.0) 09/09/17 16:40 Calcium 9.8 mg/dL (8.6-10.3) 09/09/17 16:40 Total Bilirubin 0.3 mg/dL (0.3-1.0) 09/09/17 16:40 AST 16 U/L (13-39) 09/09/17 16:40 ALT 11 U/L (7-52) 09/09/17 16:40 Alkaline Phosphatase 66 U/L (34-104) 09/09/17 16:40 Troponin I 0.01 ng/mL (0.01-0.05) 09/09/17 16:40 Total Protein 7.1 gm/dL (6.0-8.3) 09/09/17 16:40 Albumin 4.4 gm/dL (3.7-5.3) 09/09/17 16:40 Globulin 2.7 gm/dL 09/09/17 16:40 Albumin/Globulin Ratio 1.6 (1.0-1.8) 09/09/17 16:40 Triglycerides 80 mg/dL (<150) 09/09/17 16:40 Cholesterol 136 mg/dL (<200) 09/09/17 16:40 LDL Cholesterol Direct 57 mg/dL (75-193) L 09/09/17 16:40 HDL Cholesterol 60 mg/dL (23-92) 09/09/17 16:40 TSH 1.43 uIU/ml (0.34-5.60) 09/09/17 16:40 Urine Source CLEAN C 09/10/17 11:35 Urine Color YELLOW 09/10/17 11:35 Urine Clarity TURBID (CLEAR) H 09/10/17 11:35 Urine pH 6.0 (4.6 - 8.0) 09/10/17 11:35 Ur Specific [place] 1.025 (1.005-1.030) 09/10/17 11:35 Urine Protein NEGATIVE mg/dL (NEGATIVE) 09/10/17 11:35 Urine Glucose (UA) NEGATIVE mg/dL (NEGATIVE) 09/10/17 11:35 Urine Ketones NEGATIVE mg/dL (NEGATIVE) 09/10/17 11:35 Urine Blood NEGATIVE (NEGATIVE) 09/10/17 11:35 Urine Nitrate NEGATIVE (NEGATIVE) 09/10/17 11:35 Urine Bilirubin NEGATIVE (NEGATIVE) 09/10/17 11:35 Urine Urobilinogen 0.2 E.U./dL (0.2 - 1.0) 09/10/17 11:35 Ur Leukocyte Esterase NEGATIVE (NEGATIVE) 09/10/17 11:35 Urine RBC NONE SEEN /hpf (0-5) 09/10/17 11:35 Urine WBC 0-2 /hpf (0-5) 09/10/17 11:35 Ur Epithelial Cells OCCASIONAL /lpf (FEW) 09/10/17 11:35 Urine Bacteria FEW /hpf (NONE SEEN) 09/10/17 11:35 Urine Mucus FEW /lpf (FEW) 09/10/17 11:35 Salicylates < 25.0 mg/L (30.0-100.0) L 09/09/17 16:40 Urine Opiates Screen NEGATIVE (NEGATIVE) 09/11/17 21:15 Urine Methadone Screen NEGATIVE (NEGATIVE) 09/11/17 21:15 Acetaminophen < 10.0 ug/mL (10.0-30.0) L 09/09/17 16:40 Ur Barbiturates Screen NEGATIVE (NEGATIVE) 09/11/17 21:15 Ur Tricyclics Screen NEGATIVE (NEGATIVE) 09/11/17 21:15 Ur Phencyclidine Scrn NEGATIVE (NEGATIVE) 09/11/17 21:15 Amphetamines Screen NEGATIVE (NEGATIVE) 09/11/17 21:15 U Methamphetamines Scrn NEGATIVE (NEGATIVE) 09/11/17 21:15 U Benzodiazepines Scrn NEGATIVE (NEGATIVE) 09/11/17 21:15 U Cocaine Metab Screen NEGATIVE (NEGATIVE) 09/11/17 21:15 U Cannabinoids Screen NEGATIVE (NEGATIVE) 09/11/17 21:15 Ethyl Alcohol < 10 mg/dL (0-10) 09/09/17 16:40 RPR NONREACTIVE (NONREACTIVE) 09/09/17 16:40 - Physical Exam Vitals and I&O: Vital Signs Temp 97.5 F 09/16/17 14:00 Pulse 62 09/16/17 14:00 Resp 18 09/16/17 14:00 BP 126/53 09/16/17 14:00 Pulse Ox 98 09/16/17 14:00 Intake & Output 09/15/17 09/16/17 09/16/17 18:59 06:59 18:59 Intake Total 240 Balance 240 Intake: Oral 240 Other: # Voids 1 # Bowel Movements 0 Active Medications: Current Medications Acetaminophen (Tylenol) 650 mg PO Q4HR PRN PRN Reason: Mild Pain / Temp above 100 Stop: 11/08/17 21:28 Al Hydrox/Mg Hydrox/Simethicone (Maalox) 30 ml PO Q6H PRN PRN Reason: GI DISTRESS Stop: 11/08/17 20:31 Amlodipine Besylate (Norvasc) 10 mg PO DAILY [facility] Stop: 11/09/17 08:59 Last Admin: 09/16/17 08:34 Dose: 10 mg Atorvastatin Calcium (Lipitor) 20 mg PO DAILY [facility] Stop: 11/09/17 08:59 Last Admin: 09/16/17 08:34 Dose: 20 mg Benztropine Mesylate (Cogentin) 1 mg PO BID [facility] Stop: 11/09/17 08:59 Last Admin: 09/16/17 08:35 Dose: 1 mg Docusate Sodium (Colace) 250 mg PO DAILY [facility] Stop: 11/09/17 08:59 Last Admin: 09/16/17 08:34 Dose: 250 mg Lorazepam (Ativan) 0.5 mg PO Q4HR PRN; Protocol PRN Reason: Anxiety Stop: 10/09/17 21:28 Magnesium Hydroxide (Milk Of Magnesia) 30 ml PO DAILY PRN PRN Reason: Constipation Stop: 11/08/17 20:31 Last Admin: 09/15/17 11:13 Dose: 30 ml Multivitamins/Vitamin C (Theragran) 1 tab PO DAILY [facility] Stop: 11/09/17 08:59 Last Admin: 09/16/17 08:34 Dose: 1 tab Risperidone (Risperdal) 2 mg PO BID [facility]; Protocol Stop: 11/09/17 09:14 Last Admin: 09/16/17 08:33 Dose: 2 mg Zolpidem Tartrate (Ambien) 5 mg PO HS PRN PRN Reason: Insomnia Stop: 11/08/17 21:28 General: Alert, No acute distress HEENT: PERRLA Neck: Supple Cardiovascular: Regular rate Lungs: Clear to auscultation Abdomen: Bowel sounds, Soft Assessment/Plan - Problem List Patient Problems: All Active Problems Psychosis (Acute) F29 - Plan Plan: cpm Nutritional Asmnt/Malnutr-PDOC - Dietary Evaluation Malnutrition Findings (Please click <Entered> for more info): Nutritional Asmnt/Malnutrition Start: 09/15/17 14: 01 Text: Status: Complete Freq: Protocol: Document 09/15/17 14:01 MELE (Rec: 09/15/17 14:08 MELE [email or web address]) Nutritional Asmnt/Malnutrition Patient General Information Nutritional Screening Moderate Risk Diagnosis increased agitation Pertinent Medical Hx/Surgical Hx DM, HTN Subjective Information Pt seen sleeping in bed at time of visit. Per EMR, PO intake 100% of meals. Current Diet Order/ Nutrition Support regular Pertinent Medications colace, theragran Pertinent Labs 09/09 Na 134, glucose 105, A1c 5.5 Nutritional Hx/Data Height 1.52 m Height (Calculated Centimeters) 152.4 Current Weight (lbs) 46.266 kg Weight (Calculated Kilograms) 46.3 Weight (Calculated Grams) 40795.4 [place] Body Weight 100 Body Mass Index (BMI) 19.9 Weight Status Approriate GI Symptoms GI Symptoms None Last BM not indicated Difficult in: None Skin Integrity/Comment: intact Current %PO Good (75-100%) Estimated Nutritional Goals BEE in Kcals: Using Current wt Calories/Kcals/Kg 25-30 Kcals Calculated 0715-2801 Protein: Using Current wt Protein g/k Protein Calculated 46 Fluid: ml 1150-1380ml (1ml/kcal) Nutritional Problem No current Nutrition Prob Problem N/A Malnutrition Alert Is there a minimum of two criteria No selected? Query Text:Check all the applicable criteria. A minimum of two criteria are recommended for diagnosis of either severe or non-severe malnutrition. Malnutrition Related to Morbid Obesity Malnutrition related to morbid obesity No Intervention/Recommendation Comments 1. Continue with regular diet as ordered. 2. Monitor PO intake, wt, labs and skin integrity 3. F/U as low risk in 7 days, 09/22 Expected Outcomes/Goals Expected Outcomes/Goals 1. PO intake to meet at least 75% of nutritional needs. 2. Wt stability, skin to remain intact, labs to approach WNL.
--- NOTE | 2017-09-17 05:39 | Discharge Summary ---
DATE OF DISCHARGE: 09/16/2017 THE PATIENT'S AGE: 82. SEX: Female. PHYSICIAN: Dr. Lai. FINAL DIAGNOSIS/PRIMARY DIAGNOSIS: Major depression, severe, single, with psychotic features. SECONDARY DIAGNOSIS: Dementia, moderate, with psychotic features. REASON FOR HOSPITALIZATION: The patient was admitted to the hospital because of increased depression and because of increased agitation and irritability. The patient also was withdrawn and feeling hopeless. HOSPITAL COURSE: The patient continued to be withdrawn. The patient also is anxious. The patient was pacing up and down the unit. Also, was interacting minimally with others. The patient also was having difficulty with her mood and wanted to be left alone. The patient was given Lexapro. Gradually, the patient's affect was brighter. The patient was less depressed. The patient denied any thoughts of suicide or homicide. The patient was discharged from the hospital. Physical examination of the patient showed no major medical problems. Labs was basically within normal. AFTER-DISCHARGE PLANS: The patient discharged from the hospital to the [facility] with plans to continue her treatment there. EXPECTED OUTCOME AFTER DISCHARGE: Fair if the patient continues to take her psychotropic medications and follow up with discharge plans. JOB# [id number]
== END 2017-09-16 16:38 | DRG 885 ==
LOC: ER 16:18 → GERO2 19:00 → GERO 09-14 14:04 → GERO2 09-14 14:17
PROVIDERS: ADMIT Psychiatry & Neurology Psychiatry; ATTEND Psychiatry & Neurology Psychiatry
DX: F32.3 Major depressive disorder, single episode, severe with psychotic features (principal); F23 Brief psychotic disorder; Z68.1 Body mass index [BMI] 19.9 or less, adult; F03.90 Unspecified dementia, unspecified severity, without behavioral disturbance, psychotic disturbance, mood disturbance, and anxiety; I10 Essential (primary) hypertension; E11.9 Type 2 diabetes mellitus without complications; Z88.0 Allergy status to penicillin; Z83.3 Family history of diabetes mellitus; Z82.49 Family history of ischemic heart disease and other diseases of the circulatory system
CPT/HCPCS: 36415-UA; 80053-TC; 80061-TC; 80307; 80320-TC; 80329-TC; 81001-TC; 82948-90; 83036-90; 84443-TC; 84484-TC; 85025-TC; 86592-TC; 93005; G0410; Z7610

== ENCOUNTER 2018-01-29 19:04 | Inpatient (IN) | payer MEDICARE, MEDICAID ==
[2018-01-29 19:50] LABS: % BASOPHILS 0.7 % (0.0-2.0); % EOSINOPHILS 1.5 % (0.0-5.0); % LYMPHOCYTES 30.3 % (20.0-50.0); % MONOCYTES 10.1 % (2.0-10.0); % NEUTROPHILS 57.4 % (40.0-80.0); EOSINOPHILE ABSOLUTE 0.1 Th/cmm (0.1-0.4); HEMATOCRIT 37.8 % (41.0-60); HEMOGLOBIN 12.7 gm/dL (12-16); LYMPHOCYTE ABSOLUTE 1.6 Th/cmm (1.5-3.0); MEAN CORPUSCULAR HEMOGLOBIN 31.4 pg (27.0-31.0); MEAN CORPUSCULAR HGB CONC 33.7 pg (28.0-36.0); MEAN PLATELET VOLUME 6.9 fl; MONOCYTE ABSOLUTE 0.5 Th/cmm (0.3-1.0); NEUTROPHILE ABSOLUTE 3.2 Th/cmm (1.8-8.0); PLATELET COUNT 309 Th/cmm (150-400); RED BLOOD COUNT 4.06 Mil/cmm (3.80-5.20); RED CELL DISTRIBUTION WIDTH 12.2 % (11.5-20.0); WHITE BLOOD COUNT 5.4 Th/cmm (4.8-10.8)
[2018-01-29 19:55] LABS: ALB/GLOB RATIO 1.4 (1.0-1.8); ALBUMIN 3.9 gm/dL (3.7-5.3); ALKALINE PHOSPHATASE 57 U/L (34-104); ANION GAP 13.1 (7.0-16.0); BILIRUBIN,TOTAL 0.4 mg/dL (0.3-1.0); BUN - UREA NITROGEN 17 mg/dL (7-25); CALCIUM SERUM 9.3 mg/dL (8.6-10.3); CARBON DIOXIDE 23.4 mEq/L (21.0-31.0); CHLORIDE 104 mEq/L (98-107); CREATININE - SERUM 0.6 mg/dL (0.6-1.2); GLUCOSE 106 mg/dL (70-105); MAGNESIUM 2.1 mg/dL (1.9-2.7); PHOSPHOROUS 3.4 mg/dL (2.5-5.0); POTASSIUM SERUM 3.5 mEq/L (3.5-5.1); SGOT 17 U/L (13-39); SGPT/ALT 12 U/L (7-52); SODIUM SERUM 137 mEq/L (136-145); TOTAL PROTEIN,SERUM 6.7 gm/dL (6.0-8.3)
--- NOTE | 2018-01-29 20:09 | ED Physician Chart ---
ED Chief Complaint/HPI - Patient Information Date Seen:: 01/29/18 Time Seen:: 19:31 Chief Complaint:: increased agitation History of Present Illness:: BIBA from [facility] lodge for reports of increased agitation. Pt alert, awake , oriented x4, calm and cooperative. Stable, VSS. Allergies:: Allergies Allergy/AdvReac Type Severity Reaction Status Date / Time Penicillins [PCN] Allergy Verified 09/09/17 16:38 Vitals:: Vital Signs - 8 hr 01/29/18 19:31 Temp 98 F HR 59 RR 18 BP 130/43 O2 Sat % 98 Historian:: Medical Records Review:: Nurse's Note Reviewed, Transfer documents Reviewed ED Review of Systems - Review of Systems General/Constitutional: No fever, No chills, No weight loss, No weakness, No diaphoresis, No edema, No loss of appetite Skin: No skin lesions, No rash, No bruising Head: No headache, No light-headedness Eyes: No loss of vision, No pain, No diplopia ENT: No earache, No nasal drainage, No sore throat, No tinnitus Neck: No neck pain, No swelling, No thyromegaly, No stiffness, No mass noted Cardio Vascular: No chest pain, No palpitations, No PND, No orthopnea, No edema Pulmonary: No SOB, No cough, No sputum, No wheezing GI: No nausea, No vomiting, No diarrhea, No pain, No melena, No hematochezia, No constipation, No hematemesis G/U: No dysuria, No frequency, No hematuria Musculoskeletal: No bone or joint pain, No back pain, No muscle pain Endocrine: No polyuria, No polydipsia Psychiatric: Other (increased agitation) Hematopoietic: No bruising, No lymphadenopathy Allergic/Immuno: No urticaria, No angioedema Neurological: No syncope, No focal symptoms, No weakness, No paresthesia, No headache, No seizure, No dizziness, No confusion, No vertigo ED Past Medical History - Past Medical History Obtainable: Yes Family Medical History - Family Member Mother History Unknown: Yes Ethnicity: Non- ED Physical Exam - Physical Examination General/Constitutional: Awake, Well-developed, well-nourished, Alert, No distress, Non-toxic appearing, Ambulatory Head: Atraumatic Eyes: Lids, conjuctiva normal, PERRL, EOMI Skin: Nl inspection, No rash, No skin lesions, No ecchymosis, Well hydrated, No lymphadenopathy ENMT: External ears, nose nl, Nasal exam nl, Lips, teeth, gums nl Neck: Nontender, Full ROM w/o pain, No JVD, No nuchal rigidity, No bruit, No mass, No stridor Respiratory: Nl effort/Exclusion, Clear to Auscultation, No Wheeze/Rhonchi/Rales Cardio Vascular: RRR, No murmur, gallop, rubs, NL S1 S2 GI: No tenderness/rebounding/guarding, No organomegaly, No hernia, Normal BS's, Nondistended, No mass/bruits, No McBurney tenderness : No CVA tenderness Extremities: No tenderness or effusion, Full ROM, normal strength in all extremities, No edema, Normal digits & nails Neuro/Psych: Alert/oriented, Normal sensory exam, Normal motor strength, Judgement/insight normal, Mood normal, Normal gait, No focal deficits Other Neuro/Psych comments:: no evidence of agitation at this time. Patient extremely cooperative and calm Misc: Normal back, No paraspinal tenderness ED Labs/Radiology/EKG Results - Lab Results Results: Laboratory Tests 01/29/18 01/29/18 19:32 19:32 WBC 5.4 RBC 4.06 Hgb 12.7 Hct 37.8 L MCV 93.0 MCH 31.4 H MCHC Differential 33.7 RDW 12.2 Plt Count 309 MPV 6.9 Neutrophils % 57.4 Lymphocytes % 30.3 Monocytes % 10.1 H Eosinophils % 1.5 Basophils % 0.7 Sodium 137 Potassium 3.5 Chloride 104 Carbon Dioxide 23.4 Anion Gap 13.1 BUN 17 Creatinine 0.6 Est GFR ( Amer) TNP Est GFR (Non-Af Amer) TNP BUN/Creatinine Ratio 28.3 Glucose 106 H Calcium 9.3 Phosphorus 3.4 Magnesium 2.1 Total Bilirubin 0.4 AST 17 ALT 12 Alkaline Phosphatase 57 Total Protein 6.7 Albumin 3.9 Globulin 2.8 Albumin/Globulin Ratio 1.4 ED Assessment - Assessment General Assessment: PATIENT IS MEDICALLY CLEARED FROM A GEROPSYCH STANDPOINT. no evidence of agitation at this time. Patient extremely cooperative and calm throughout her ER stay. ED Septic Shock - . Is Septic Shock (SBP<90, OR Lactate>4 mmol\L) present?: No - <6hrs of presentation: Vital Signs: Vital Signs - 8 hr 01/29/18 19:31 Temp 98 F HR 59 RR 18 BP 130/43 O2 Sat % 98 ED Reassessment (Disposition) - Reassessment Reassessment Condition:: Unchanged - Diagnosis Diagnosis:: Increased agitation per history, no evidence of agitation during emergency room stay. Patient calm and extremely cooperative during emergency room stay - Patient Disposition Discharge/Transfer:: Acute Care w/in this hosp Admitted to:: [facility] Condition at Disposition:: Stable, Unchanged
[2018-01-29 20:30] LABS: AMPHETAMINE URINE NEGATIVE (NEGATIVE); BARBITURATES URINE NEGATIVE (NEGATIVE); BENZODIAZEPINES QUAL URINE NEGATIVE (NEGATIVE); CANNABINOID THC NEGATIVE (NEGATIVE); COCAINE METABOLITE QUAL URINE NEGATIVE (NEGATIVE); METHADONE URINE NEGATIVE (NEGATIVE); METHAMPHETAMINES QUAL URINE NEGATIVE (NEGATIVE); OPIATES (MORPHINE) QUAL. URINE NEGATIVE (NEGATIVE); PHENCYCLIDINE (PCP) URINE NEGATIVE (NEGATIVE); TRICYCLICS (TCA) QUAL. URINE NEGATIVE (NEGATIVE)
[2018-01-29 22:29] LABS: URINE BILIRUBIN NEGATIVE (NEGATIVE); URINE BLOOD NEGATIVE (NEGATIVE); URINE GLUCOSE (UA) NEGATIVE (NEGATIVE); URINE KETONE NEGATIVE (NEGATIVE); URINE LEUKOCYTE ESTERASE NEGATIVE (NEGATIVE); URINE NITRATE NEGATIVE (NEGATIVE); URINE PH 6.5 (4.6 - 8.0); URINE PROTEIN NEGATIVE (NEGATIVE); URINE SOURCE CLEAN C; URINE UROBILINOGEN 0.2 E.U./dL (0.2 - 1.0)
[2018-01-29 22:32] LABS: URINE CLARITY CLEAR (CLEAR); URINE COLOR YELLOW; URINE MICROSCOPIC INDICATED? YES
[2018-01-29 22:33] LABS: URINE BACTERIA OCCASIONAL /hpf (NONE SEEN); URINE EPITHELIAL CELLS FEW /lpf (FEW); URINE RBC NONE SEEN /hpf (0-5)
[2018-01-30] MEDS ORDERED: Maalox 30 mL Cup PO PRN (00:47)
[2018-01-30] MEDS ORDERED: Magnesium Hydroxide (MOM) 30 mL UDC PO PRN (00:47)
[2018-01-30 07:05] LABS: CHOLESTEROL 127 mg/dL (<200); HDL -HIGH DENSITY LIPOPROTEIN 59 mg/dL (23-92); TRIGLYCERIDES 73 mg/dL (<150)
[2018-01-30] MEDS: Multivitamin Tab PO SCH (08:47)
[2018-01-30] MEDS: Benztropine 1 MG TAB PO SCH ×2 (08:47→16:30)
--- NOTE | 2018-01-30 14:38 | History & Physical ---
ADMIT DATE: 01/30/2018 CHIEF COMPLAINT: Agitation. HISTORY OF PRESENT ILLNESS: This is an 82-year-old female who was admitted from a long term facility to [facility] due to increase in agitation and pacing around the hallway. REVIEW OF SYSTEMS: GENERAL: This is an 82-year-old female that appears as stated. HEENT: Denies headache, denies dizziness. EYES: Denies eye pain. Denies blurring of vision. NECK: Denies neck pain. Denies nuchal rigidity. CHEST: Denies chest pain. Denies palpitation. PULMONARY: Denies coughing. Denies shortness of breath. GASTROINTESTINAL: Denies abdominal pain. Denies constipation. Denies diarrhea. MUSCULOSKELETAL: Denies joint pain. Denies muscle pain. SOCIAL HISTORY: The patient lives in a long term facility prior to hospitalization. Denies illicit drug use, denies alcohol use, denies nicotine dependence. PAST MEDICAL HISTORY: Includes hypertension, hyperlipidemia, osteoarthritis. PSYCHIATRIC HISTORY: Includes psychosis. FAMILY HISTORY: Unremarkable. PAST SURGICAL HISTORY: Unremarkable. PHYSICAL EXAMINATION: VITAL SIGNS: Temperature 98.5, heart rate 60, blood pressure 152/52, respirations of 18, and 96% on room air. GENERAL: This is an 82-year-old female that appears as stated in no acute distress. HEENT: Head is atraumatic, normocephalic. Eyes: Bilateral conjunctivae are clear. Bilateral pupils equal, round and reactive. NECK: Supple. No JVD. CARDIOVASCULAR: S1 and S2, without murmur. PULMONARY: Clear to auscultation. GASTROINTESTINAL: Soft and nontender without guarding. Positive bowel sounds. MUSCULOSKELETAL: No clubbing. No cyanosis noted. ASSESSMENT: 1. Psychosis. 2. Hypertension. 3. Hyperlipidemia. 4. Insomnia. 5. Osteoarthritis. PLAN: We will admit the patient to Inpatient Psychiatric Unit. We will do medication reconciliation accordingly. We will follow up with psychiatrist to monitor the patient's condition and behavior. Treatment plans were discussed with the patient's nurse. Treatment plans were discussed with Dr. Oakley. JOB# [id number]
[2018-01-30] MEDS: Atorvastatin Calcium 10 MG TAB PO SCH (21:04)
[2018-01-31] MEDS: Multivitamin Tab PO SCH (09:30)
[2018-01-31] MEDS: Benztropine 1 MG TAB PO SCH ×2 (09:30→18:08)
--- NOTE | 2018-01-31 12:17 | Internal Medicine Prog Note ---
Internal Medicine Subjective - Subjective Patient seen and examined:: chart reviewed Patient is:: confused Per staff patient has:: no adverse event, tolerating meds Internal Medicine Objective - Results Result Diagrams: 01/29/18 19:32 01/29/18 19:32 Recent Labs: Laboratory Last Values WBC 5.4 Th/cmm (4.8-10.8) 01/29/18 19:32 RBC 4.06 Mil/cmm (3.80-5.20) 01/29/18 19:32 Hgb 12.7 gm/dL (12-16) 01/29/18 19:32 Hct 37.8 % (41.0-60) L 01/29/18 19:32 MCV 93.0 fl (81-100) 01/29/18 19:32 MCH 31.4 pg (27.0-31.0) H 01/29/18 19:32 MCHC Differential 33.7 pg (28.0-36.0) 01/29/18 19:32 RDW 12.2 % (11.5-20.0) 01/29/18 19:32 Plt Count 309 Th/cmm (150-400) 01/29/18 19:32 MPV 6.9 fl 01/29/18 19:32 Neutrophils % 57.4 % (40.0-80.0) 01/29/18 19:32 Lymphocytes % 30.3 % (20.0-50.0) 01/29/18 19:32 Monocytes % 10.1 % (2.0-10.0) H 01/29/18 19:32 Eosinophils % 1.5 % (0.0-5.0) 01/29/18 19:32 Basophils % 0.7 % (0.0-2.0) 01/29/18 19:32 Sodium 137 mEq/L (136-145) 01/29/18 19:32 Potassium 3.5 mEq/L (3.5-5.1) 01/29/18 19:32 Chloride 104 mEq/L (98-107) 01/29/18 19:32 Carbon Dioxide 23.4 mEq/L (21.0-31.0) 01/29/18 19:32 Anion Gap 13.1 (7.0-16.0) 01/29/18 19:32 BUN 17 mg/dL (7-25) 01/29/18 19:32 Creatinine 0.6 mg/dL (0.6-1.2) 01/29/18 19:32 Est GFR ( Amer) TNP 01/29/18 19:32 Est GFR (Non-Af Amer) TNP 01/29/18 19:32 BUN/Creatinine Ratio 28.3 01/29/18 19:32 Glucose 106 mg/dL (70-105) H 01/29/18 19:32 Calcium 9.3 mg/dL (8.6-10.3) 01/29/18 19:32 Phosphorus 3.4 mg/dL (2.5-5.0) 01/29/18 19:32 Magnesium 2.1 mg/dL (1.9-2.7) 01/29/18 19:32 Total Bilirubin 0.4 mg/dL (0.3-1.0) 01/29/18 19:32 AST 17 U/L (13-39) 01/29/18 19:32 ALT 12 U/L (7-52) 01/29/18 19:32 Alkaline Phosphatase 57 U/L (34-104) 01/29/18 19:32 Total Protein 6.7 gm/dL (6.0-8.3) 01/29/18 19:32 Albumin 3.9 gm/dL (3.7-5.3) 01/29/18 19:32 Globulin 2.8 gm/dL 01/29/18 19:32 Albumin/Globulin Ratio 1.4 (1.0-1.8) 01/29/18 19:32 Triglycerides 73 mg/dL (<150) 01/30/18 06:26 Cholesterol 127 mg/dL (<200) 01/30/18 06:26 LDL Cholesterol Direct 50 mg/dL (75-193) L 01/30/18 06:26 HDL Cholesterol 59 mg/dL (23-92) 01/30/18 06:26 TSH 3.01 uIU/ml (0.34-5.60) 01/29/18 19:32 Urine Source CLEAN C 01/29/18 22:20 Urine Color YELLOW 01/29/18 22:20 Urine Clarity CLEAR (CLEAR) 01/29/18 22:20 Urine pH 6.5 (4.6 - 8.0) 01/29/18 22:20 Ur Specific [place] 1.020 (1.005-1.030) 01/29/18 22:20 Urine Protein NEGATIVE mg/dL (NEGATIVE) 01/29/18 22:20 Urine Glucose (UA) NEGATIVE mg/dL (NEGATIVE) 01/29/18 22:20 Urine Ketones NEGATIVE mg/dL (NEGATIVE) 01/29/18 22:20 Urine Blood NEGATIVE (NEGATIVE) 01/29/18 22:20 Urine Nitrate NEGATIVE (NEGATIVE) 01/29/18 22:20 Urine Bilirubin NEGATIVE (NEGATIVE) 01/29/18 22:20 Urine Urobilinogen 0.2 E.U./dL (0.2 - 1.0) 01/29/18 22:20 Ur Leukocyte Esterase NEGATIVE (NEGATIVE) 01/29/18 22:20 Urine RBC NONE SEEN /hpf (0-5) 01/29/18 22:20 Urine WBC 2-5 /hpf (0-5) 01/29/18 22:20 Ur Epithelial Cells FEW /lpf (FEW) 01/29/18 22:20 Urine Bacteria OCCASIONAL /hpf (NONE SEEN) 01/29/18 22:20 Urine Opiates Screen NEGATIVE (NEGATIVE) 01/29/18 20:12 Urine Methadone Screen NEGATIVE (NEGATIVE) 01/29/18 20:12 Ur Barbiturates Screen NEGATIVE (NEGATIVE) 01/29/18 20:12 Ur Tricyclics Screen NEGATIVE (NEGATIVE) 01/29/18 20:12 Ur Phencyclidine Scrn NEGATIVE (NEGATIVE) 01/29/18 20:12 Amphetamines Screen NEGATIVE (NEGATIVE) 01/29/18 20:12 U Methamphetamines Scrn NEGATIVE (NEGATIVE) 01/29/18 20:12 U Benzodiazepines Scrn NEGATIVE (NEGATIVE) 01/29/18 20:12 U Cocaine Metab Screen NEGATIVE (NEGATIVE) 01/29/18 20:12 U Cannabinoids Screen NEGATIVE (NEGATIVE) 01/29/18 20:12 - Physical Exam Vitals and I&O: Vital Signs Temp 98.0 F 01/31/18 06:16 Pulse 64 01/31/18 09:31 Resp 18 01/31/18 06:16 BP 148/69 01/31/18 09:31 Pulse Ox 98 01/31/18 06:16 Intake & Output 01/30/18 01/31/18 01/31/18 18:59 06:59 18:59 Intake Total 120 Output Total 1 Balance 119 Intake: Oral 120 Output: Urine/Stool Mix 1 Other: # Voids 1 Active Medications: Current Medications Al Hydrox/Mg Hydrox/Simethicone (Maalox) 30 ml PO Q6H PRN PRN Reason: GI DISTRESS Stop: 03/31/18 00:46 Amlodipine Besylate (Norvasc) 10 mg PO DAILY [facility] Stop: 03/31/18 08:59 Last Admin: 01/31/18 09:31 Dose: 10 mg Atorvastatin Calcium (Lipitor) 20 mg PO HS [facility]; Protocol Stop: 03/31/18 20:59 Last Admin: 01/30/18 21:04 Dose: 20 mg Benztropine Mesylate (Cogentin) 1 mg PO BID [facility] Stop: 03/31/18 08:59 Last Admin: 01/31/18 09:30 Dose: 1 mg Docusate Sodium (Colace) 250 mg PO DAILY [facility] Stop: 03/31/18 08:59 Last Admin: 01/31/18 09:32 Dose: 250 mg Lorazepam (Ativan) 0.5 mg PO Q4HR PRN; Protocol PRN Reason: Anxiety Stop: 03/01/18 00:35 Magnesium Hydroxide (Milk Of Magnesia) 30 ml PO DAILY PRN PRN Reason: Constipation Stop: 03/31/18 00:46 Multivitamins/Vitamin C (Theragran) 1 tab PO DAILY [facility] Stop: 03/31/18 08:59 Last Admin: 01/31/18 09:30 Dose: 1 tab Risperidone (Risperdal) 2 mg PO BID [facility]; Protocol Stop: 03/31/18 08:59 Last Admin: 01/31/18 09:30 Dose: 2 mg Zolpidem Tartrate (Ambien) 5 mg PO HS PRN PRN Reason: Insomnia Stop: 03/31/18 00:35 General: alert, other (irritable ) Neck: Supple Lungs: CTAB Cardiovascular: Normal S1, Normal S2 Abdomen: soft Extremities: clear, edema Neurological: no change, alert Internal Medicine Assmt/Plan - Assessment Assessment: psychosis htn hyperlipidemia insomnia oa - Plan Plan: as per psych will monitor
--- NOTE | 2018-01-31 14:01 | Consultation ---
DATE OF CONSULTATION: 01/30/[address] Lai. 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 Per medical records from the prison, she is currently treating on risperidone and Cogentin. Today on [id number] evaluation, she is a limited historian, disengaged, does not provide much information, mostly just shakes her head yes and no and then walks away. PAST MEDICAL HISTORY: Diabetes, hypertension. LEGAL HISTORY: None. FAMILY PSYCHIATRIC HISTORY: Unknown. PSYCHOSOCIAL ENVIRONMENTAL HISTORY: Lives in prison. PSYCHIATRIC HISTORY: History of schizophrenia, dementia. FAMILY HISTORY: Denied. LABS FROM THE EMERGENCY ROOM: Medically clear. ALLERGIES: PENICILLIN. CURRENT MEDICATIONS: Lopid, atorvastatin, benztropine 1 mg p.o. b.i.d., Ativan as needed, risperidone 2 mg b.i.d. MENTAL STATUS EXAMINATION: Calm, disengaged in interview, aloof. There are no thought blocking. Poor insight, judgment and impulse control, delusional. PRIMARY DIAGNOSIS: Schizophrenia. SECONDARY DIAGNOSES: None. MEDICAL DIAGNOSES: Hypertension, hyperlipidemia, diabetes. ASSESSMENT AND PLAN: This is an 82-year-old female with a history of schizophrenia, dementia. We will continue with the current medication regimen while we obtain more collateral baseline information. STRENGTHS: Good support system. WEAKNESSES: Poor coping skills. PLAN: 1. Admit the patient. 2. Continue with Risperdal and Cogentin. 3. Obtain more collateral baseline information. 4. We will continue with both individual and group therapy and [facility]. JOB# [id number]
[2018-01-31] MEDS: Atorvastatin Calcium 10 MG TAB PO SCH (20:43)
--- NOTE | 2018-02-01 03:15 | Progress Notes ---
DATE: 01/31/2018 SUBJECTIVE: The patient was seen and evaluated. The patient's chart reviewed. Today on [id number] evaluation, the patient mostly respond to most questions "I don't know, I don't know." No side effects to medications. ASSESSMENT AND PLAN: The patient is an 82-year-old female with history of schizoaffective disorder, distraught, overwhelmed, disorganized and unable to formulate a safe plan outside the structured environment. We will continue monitoring and evaluating. JOB# [id number]
[2018-02-01] MEDS: Benztropine 1 MG TAB PO SCH ×2 (08:27→16:55)
[2018-02-01] MEDS: Multivitamin Tab PO SCH (08:27)
--- NOTE | 2018-02-01 10:33 | Internal Medicine Prog Note ---
Internal Medicine Subjective - Subjective Patient seen and examined:: chart reviewed Patient is:: awake, confused Per staff patient has:: no adverse event, tolerating meds Internal Medicine Objective - Results Result Diagrams: 01/29/18 19:32 01/29/18 19:32 Recent Labs: Laboratory Last Values WBC 5.4 Th/cmm (4.8-10.8) 01/29/18 19:32 RBC 4.06 Mil/cmm (3.80-5.20) 01/29/18 19:32 Hgb 12.7 gm/dL (12-16) 01/29/18 19:32 Hct 37.8 % (41.0-60) L 01/29/18 19:32 MCV 93.0 fl (81-100) 01/29/18 19:32 MCH 31.4 pg (27.0-31.0) H 01/29/18 19:32 MCHC Differential 33.7 pg (28.0-36.0) 01/29/18 19:32 RDW 12.2 % (11.5-20.0) 01/29/18 19:32 Plt Count 309 Th/cmm (150-400) 01/29/18 19:32 MPV 6.9 fl 01/29/18 19:32 Neutrophils % 57.4 % (40.0-80.0) 01/29/18 19:32 Lymphocytes % 30.3 % (20.0-50.0) 01/29/18 19:32 Monocytes % 10.1 % (2.0-10.0) H 01/29/18 19:32 Eosinophils % 1.5 % (0.0-5.0) 01/29/18 19:32 Basophils % 0.7 % (0.0-2.0) 01/29/18 19:32 Sodium 137 mEq/L (136-145) 01/29/18 19:32 Potassium 3.5 mEq/L (3.5-5.1) 01/29/18 19:32 Chloride 104 mEq/L (98-107) 01/29/18 19:32 Carbon Dioxide 23.4 mEq/L (21.0-31.0) 01/29/18 19:32 Anion Gap 13.1 (7.0-16.0) 01/29/18 19:32 BUN 17 mg/dL (7-25) 01/29/18 19:32 Creatinine 0.6 mg/dL (0.6-1.2) 01/29/18 19:32 Est GFR ( Amer) TNP 01/29/18 19:32 Est GFR (Non-Af Amer) TNP 01/29/18 19:32 BUN/Creatinine Ratio 28.3 01/29/18 19:32 Glucose 106 mg/dL (70-105) H 01/29/18 19:32 Calcium 9.3 mg/dL (8.6-10.3) 01/29/18 19:32 Phosphorus 3.4 mg/dL (2.5-5.0) 01/29/18 19:32 Magnesium 2.1 mg/dL (1.9-2.7) 01/29/18 19:32 Total Bilirubin 0.4 mg/dL (0.3-1.0) 01/29/18 19:32 AST 17 U/L (13-39) 01/29/18 19:32 ALT 12 U/L (7-52) 01/29/18 19:32 Alkaline Phosphatase 57 U/L (34-104) 01/29/18 19:32 Total Protein 6.7 gm/dL (6.0-8.3) 01/29/18 19:32 Albumin 3.9 gm/dL (3.7-5.3) 01/29/18 19:32 Globulin 2.8 gm/dL 01/29/18 19:32 Albumin/Globulin Ratio 1.4 (1.0-1.8) 01/29/18 19:32 Triglycerides 73 mg/dL (<150) 01/30/18 06:26 Cholesterol 127 mg/dL (<200) 01/30/18 06:26 LDL Cholesterol Direct 50 mg/dL (75-193) L 01/30/18 06:26 HDL Cholesterol 59 mg/dL (23-92) 01/30/18 06:26 TSH 3.01 uIU/ml (0.34-5.60) 01/29/18 19:32 Urine Source CLEAN C 01/29/18 22:20 Urine Color YELLOW 01/29/18 22:20 Urine Clarity CLEAR (CLEAR) 01/29/18 22:20 Urine pH 6.5 (4.6 - 8.0) 01/29/18 22:20 Ur Specific [place] 1.020 (1.005-1.030) 01/29/18 22:20 Urine Protein NEGATIVE mg/dL (NEGATIVE) 01/29/18 22:20 Urine Glucose (UA) NEGATIVE mg/dL (NEGATIVE) 01/29/18 22:20 Urine Ketones NEGATIVE mg/dL (NEGATIVE) 01/29/18 22:20 Urine Blood NEGATIVE (NEGATIVE) 01/29/18 22:20 Urine Nitrate NEGATIVE (NEGATIVE) 01/29/18 22:20 Urine Bilirubin NEGATIVE (NEGATIVE) 01/29/18 22:20 Urine Urobilinogen 0.2 E.U./dL (0.2 - 1.0) 01/29/18 22:20 Ur Leukocyte Esterase NEGATIVE (NEGATIVE) 01/29/18 22:20 Urine RBC NONE SEEN /hpf (0-5) 01/29/18 22:20 Urine WBC 2-5 /hpf (0-5) 01/29/18 22:20 Ur Epithelial Cells FEW /lpf (FEW) 01/29/18 22:20 Urine Bacteria OCCASIONAL /hpf (NONE SEEN) 01/29/18 22:20 Urine Opiates Screen NEGATIVE (NEGATIVE) 01/29/18 20:12 Urine Methadone Screen NEGATIVE (NEGATIVE) 01/29/18 20:12 Ur Barbiturates Screen NEGATIVE (NEGATIVE) 01/29/18 20:12 Ur Tricyclics Screen NEGATIVE (NEGATIVE) 01/29/18 20:12 Ur Phencyclidine Scrn NEGATIVE (NEGATIVE) 01/29/18 20:12 Amphetamines Screen NEGATIVE (NEGATIVE) 01/29/18 20:12 U Methamphetamines Scrn NEGATIVE (NEGATIVE) 01/29/18 20:12 U Benzodiazepines Scrn NEGATIVE (NEGATIVE) 01/29/18 20:12 U Cocaine Metab Screen NEGATIVE (NEGATIVE) 01/29/18 20:12 U Cannabinoids Screen NEGATIVE (NEGATIVE) 01/29/18 20:12 - Physical Exam Vitals and I&O: Vital Signs Temp 98 F 02/01/18 06:08 Pulse 69 02/01/18 08:26 Resp 19 02/01/18 06:08 BP 117/50 02/01/18 08:26 Pulse Ox 98 02/01/18 06:08 Intake & Output 01/31/18 02/01/18 02/01/18 18:59 06:59 18:59 Intake Total 240 Balance 240 Intake: Oral 240 Other: # Voids 3 # Bowel Movements 1 0 Active Medications: Current Medications Al Hydrox/Mg Hydrox/Simethicone (Maalox) 30 ml PO Q6H PRN PRN Reason: GI DISTRESS Stop: 03/31/18 00:46 Amlodipine Besylate (Norvasc) 10 mg PO DAILY [facility] Stop: 03/31/18 08:59 Last Admin: 02/01/18 08:26 Dose: Not Given Atorvastatin Calcium (Lipitor) 20 mg PO HS [facility]; Protocol Stop: 03/31/18 20:59 Last Admin: 01/31/18 20:43 Dose: 20 mg Benztropine Mesylate (Cogentin) 1 mg PO BID [facility] [place] Stop: 03/31/18 08:59 Last Admin: 02/01/18 08:27 Dose: 1 mg Docusate Sodium (Colace) 250 mg PO DAILY [facility] [place] Stop: 03/31/18 08:59 Last Admin: 02/01/18 08:27 Dose: 250 mg Lorazepam (Ativan) 0.5 mg PO Q4HR PRN; Protocol PRN Reason: Anxiety Stop: 03/01/18 00:35 Magnesium Hydroxide (Milk Of Magnesia) 30 ml PO DAILY PRN PRN Reason: Constipation Stop: 03/31/18 00:46 Multivitamins/Vitamin C (Theragran) 1 tab PO DAILY [facility] Stop: 03/31/18 08:59 Last Admin: 02/01/18 08:27 Dose: 1 tab Risperidone (Risperdal) 2 mg PO BID [facility]; Protocol Stop: 03/31/18 08:59 Last Admin: 02/01/18 08:27 Dose: 2 mg Zolpidem Tartrate (Ambien) 5 mg PO HS PRN PRN Reason: Insomnia Stop: 03/31/18 00:35 General: alert, other (irritable ) Neck: Supple Lungs: CTAB Cardiovascular: Normal S1, Normal S2 Abdomen: soft Extremities: clear, edema Neurological: no change, alert Internal Medicine Assmt/Plan - Assessment Assessment: psychosis htn hyperlipidemia insomnia oa - Plan Plan: as per psych will monitor
[2018-02-01] MEDS: Atorvastatin Calcium 10 MG TAB PO SCH (20:15)
[2018-02-02] MEDS: Multivitamin Tab PO SCH (09:46)
[2018-02-02] MEDS: Benztropine 1 MG TAB PO SCH ×2 (09:46→17:16)
--- NOTE | 2018-02-02 12:50 | Internal Medicine Prog Note ---
Internal Medicine Subjective - Subjective Service Date: 02/02/18 Patient is:: awake, confused Per staff patient has:: no adverse event, tolerating meds Internal Medicine Objective - Results Result Diagrams: 01/29/18 19:32 01/29/18 19:32 Recent Labs: Laboratory Last Values WBC 5.4 Th/cmm (4.8-10.8) 01/29/18 19:32 RBC 4.06 Mil/cmm (3.80-5.20) 01/29/18 19:32 Hgb 12.7 gm/dL (12-16) 01/29/18 19:32 Hct 37.8 % (41.0-60) L 01/29/18 19:32 MCV 93.0 fl (81-100) 01/29/18 19:32 MCH 31.4 pg (27.0-31.0) H 01/29/18 19:32 MCHC Differential 33.7 pg (28.0-36.0) 01/29/18 19:32 RDW 12.2 % (11.5-20.0) 01/29/18 19:32 Plt Count 309 Th/cmm (150-400) 01/29/18 19:32 MPV 6.9 fl 01/29/18 19:32 Neutrophils % 57.4 % (40.0-80.0) 01/29/18 19:32 Lymphocytes % 30.3 % (20.0-50.0) 01/29/18 19:32 Monocytes % 10.1 % (2.0-10.0) H 01/29/18 19:32 Eosinophils % 1.5 % (0.0-5.0) 01/29/18 19:32 Basophils % 0.7 % (0.0-2.0) 01/29/18 19:32 Sodium 137 mEq/L (136-145) 01/29/18 19:32 Potassium 3.5 mEq/L (3.5-5.1) 01/29/18 19:32 Chloride 104 mEq/L (98-107) 01/29/18 19:32 Carbon Dioxide 23.4 mEq/L (21.0-31.0) 01/29/18 19:32 Anion Gap 13.1 (7.0-16.0) 01/29/18 19:32 BUN 17 mg/dL (7-25) 01/29/18 19:32 Creatinine 0.6 mg/dL (0.6-1.2) 01/29/18 19:32 Est GFR ( Amer) TNP 01/29/18 19:32 Est GFR (Non-Af Amer) TNP 01/29/18 19:32 BUN/Creatinine Ratio 28.3 01/29/18 19:32 Glucose 106 mg/dL (70-105) H 01/29/18 19:32 Calcium 9.3 mg/dL (8.6-10.3) 01/29/18 19:32 Phosphorus 3.4 mg/dL (2.5-5.0) 01/29/18 19:32 Magnesium 2.1 mg/dL (1.9-2.7) 01/29/18 19:32 Total Bilirubin 0.4 mg/dL (0.3-1.0) 01/29/18 19:32 AST 17 U/L (13-39) 01/29/18 19:32 ALT 12 U/L (7-52) 01/29/18 19:32 Alkaline Phosphatase 57 U/L (34-104) 01/29/18 19:32 Total Protein 6.7 gm/dL (6.0-8.3) 01/29/18 19:32 Albumin 3.9 gm/dL (3.7-5.3) 01/29/18 19:32 Globulin 2.8 gm/dL 01/29/18 19:32 Albumin/Globulin Ratio 1.4 (1.0-1.8) 01/29/18 19:32 Triglycerides 73 mg/dL (<150) 01/30/18 06:26 Cholesterol 127 mg/dL (<200) 01/30/18 06:26 LDL Cholesterol Direct 50 mg/dL (75-193) L 01/30/18 06:26 HDL Cholesterol 59 mg/dL (23-92) 01/30/18 06:26 TSH 3.01 uIU/ml (0.34-5.60) 01/29/18 19:32 Urine Source CLEAN C 01/29/18 22:20 Urine Color YELLOW 01/29/18 22:20 Urine Clarity CLEAR (CLEAR) 01/29/18 22:20 Urine pH 6.5 (4.6 - 8.0) 01/29/18 22:20 Ur Specific [place] 1.020 (1.005-1.030) 01/29/18 22:20 Urine Protein NEGATIVE mg/dL (NEGATIVE) 01/29/18 22:20 Urine Glucose (UA) NEGATIVE mg/dL (NEGATIVE) 01/29/18 22:20 Urine Ketones NEGATIVE mg/dL (NEGATIVE) 01/29/18 22:20 Urine Blood NEGATIVE (NEGATIVE) 01/29/18 22:20 Urine Nitrate NEGATIVE (NEGATIVE) 01/29/18 22:20 Urine Bilirubin NEGATIVE (NEGATIVE) 01/29/18 22:20 Urine Urobilinogen 0.2 E.U./dL (0.2 - 1.0) 01/29/18 22:20 Ur Leukocyte Esterase NEGATIVE (NEGATIVE) 01/29/18 22:20 Urine RBC NONE SEEN /hpf (0-5) 01/29/18 22:20 Urine WBC 2-5 /hpf (0-5) 01/29/18 22:20 Ur Epithelial Cells FEW /lpf (FEW) 01/29/18 22:20 Urine Bacteria OCCASIONAL /hpf (NONE SEEN) 01/29/18 22:20 Urine Opiates Screen NEGATIVE (NEGATIVE) 01/29/18 20:12 Urine Methadone Screen NEGATIVE (NEGATIVE) 01/29/18 20:12 Ur Barbiturates Screen NEGATIVE (NEGATIVE) 01/29/18 20:12 Ur Tricyclics Screen NEGATIVE (NEGATIVE) 01/29/18 20:12 Ur Phencyclidine Scrn NEGATIVE (NEGATIVE) 01/29/18 20:12 Amphetamines Screen NEGATIVE (NEGATIVE) 01/29/18 20:12 U Methamphetamines Scrn NEGATIVE (NEGATIVE) 01/29/18 20:12 U Benzodiazepines Scrn NEGATIVE (NEGATIVE) 01/29/18 20:12 U Cocaine Metab Screen NEGATIVE (NEGATIVE) 01/29/18 20:12 U Cannabinoids Screen NEGATIVE (NEGATIVE) 01/29/18 20:12 - Physical Exam Vitals and I&O: Vital Signs Temp 97.4 F 02/02/18 06:13 Pulse 56 02/02/18 09:46 Resp 19 02/02/18 06:13 BP 129/55 02/02/18 09:46 Pulse Ox 97 02/02/18 06:13 Intake & Output 02/01/18 02/02/18 02/02/18 18:59 06:59 18:59 Intake Total 180 Balance 180 Intake: Oral 180 Other: # Voids 2 # Bowel Movements 1 1 Active Medications: Current Medications Al Hydrox/Mg Hydrox/Simethicone (Maalox) 30 ml PO Q6H PRN PRN Reason: GI DISTRESS Stop: 03/31/18 00:46 Amlodipine Besylate (Norvasc) 10 mg PO DAILY [facility] Stop: 03/31/18 08:59 Last Admin: 02/02/18 09:46 Dose: Not Given Atorvastatin Calcium (Lipitor) 20 mg PO HS [facility]; Protocol Stop: 03/31/18 20:59 Last Admin: 02/01/18 20:15 Dose: 20 mg Benztropine Mesylate (Cogentin) 1 mg PO BID [facility] Stop: 03/31/18 08:59 Last Admin: 02/02/18 09:46 Dose: 1 mg Docusate Sodium (Colace) 250 mg PO DAILY [facility] Stop: 03/31/18 08:59 Last Admin: 02/02/18 09:46 Dose: 250 mg Lorazepam (Ativan) 0.5 mg PO Q4HR PRN; Protocol PRN Reason: Anxiety Stop: 03/01/18 00:35 Magnesium Hydroxide (Milk Of Magnesia) 30 ml PO DAILY PRN PRN Reason: Constipation Stop: 03/31/18 00:46 Multivitamins/Vitamin C (Theragran) 1 tab PO DAILY [facility] Stop: 03/31/18 08:59 Last Admin: 02/02/18 09:46 Dose: 1 tab Quetiapine Fumarate (Seroquel) 50 mg PO BID [facility]; Protocol Stop: 04/02/18 16:59 Last Admin: 02/02/18 09:46 Dose: 50 mg Zolpidem Tartrate (Ambien) 5 mg PO HS PRN PRN Reason: Insomnia Stop: 03/31/18 00:35 General: alert, other (irritable ) Neck: Supple Lungs: CTAB Cardiovascular: Normal S1, Normal S2 Abdomen: soft Extremities: clear, edema Neurological: no change, alert
--- NOTE | 2018-02-02 15:03 | Progress Notes ---
DATE: 02/01/2018 PSYCHIATRIC PROGRESS NOTE SUBJECTIVE: Chart reviewed and the patient interviewed. Also discussed the patient's condition with the staff and reviewed records and labs. The patient continued to be pacing up and down the unit and she basically was refusing to talk to me today. She also is still easily agitated and in irritable mood. She also is still pacing up and down the unit. She also is still restless and she is still unable to follow directions. The patient also is talking about her 's spirits on the unit. Otherwise, the patient is compliant with taking her medications with no side effects of medications. It seems that the patient on Risperdal, but it has not been helping the patient much and the patient is still agitated and is still psychotic and pacing up and down the unit. TREATMENT PLAN: We will discontinue Risperdal and we will start Seroquel. Hopefully, Seroquel will help the patient more. At the same time, we will continue to monitor her behavior and continue to follow up. JOB# [id number]
--- NOTE | 2018-02-02 16:40 | Progress Notes ---
DATE: 02/02/2018 Case was discussed with staff of the patient, reviewed records. Covering for Dr. Lai. This is an 82-year-old female who was admitted on 01/29/2018 brought from the longterm with a history of schizophrenia. She has been aggressive, disorganized from the medical records from longterm indicates that she is on Risperdal and Cogentin. The patient was a poor historian and cannot provide much information. The patient continues to be unpredictable, impulsive. She is taking her medication. According to the staff, she is hard to redirect. She is easily agitated. She is on Seroquel 50 mg twice a day, Risperdal was discontinued as she is unpredictable, impulsive, demented, confused, and we will continue outpatient group therapy, milieu therapy, and adjust medication as needed and also examine the need to ____. JOB# [id number]
[2018-02-02] MEDS: Atorvastatin Calcium 10 MG TAB PO SCH (20:46)
[2018-02-03] MEDS: Benztropine 1 MG TAB PO SCH ×2 (09:52→17:16)
[2018-02-03] MEDS: Multivitamin Tab PO SCH (09:52)
--- NOTE | 2018-02-03 14:18 | Internal Medicine Prog Note ---
Internal Medicine Subjective - Subjective Patient seen and examined:: chart reviewed Patient is:: awake, confused, other Per staff patient has:: no adverse event, tolerating meds Internal Medicine Objective - Results Result Diagrams: 01/29/18 19:32 01/29/18 19:32 Recent Labs: Laboratory Last Values WBC 5.4 Th/cmm (4.8-10.8) 01/29/18 19:32 RBC 4.06 Mil/cmm (3.80-5.20) 01/29/18 19:32 Hgb 12.7 gm/dL (12-16) 01/29/18 19:32 Hct 37.8 % (41.0-60) L 01/29/18 19:32 MCV 93.0 fl (81-100) 01/29/18 19:32 MCH 31.4 pg (27.0-31.0) H 01/29/18 19:32 MCHC Differential 33.7 pg (28.0-36.0) 01/29/18 19:32 RDW 12.2 % (11.5-20.0) 01/29/18 19:32 Plt Count 309 Th/cmm (150-400) 01/29/18 19:32 MPV 6.9 fl 01/29/18 19:32 Neutrophils % 57.4 % (40.0-80.0) 01/29/18 19:32 Lymphocytes % 30.3 % (20.0-50.0) 01/29/18 19:32 Monocytes % 10.1 % (2.0-10.0) H 01/29/18 19:32 Eosinophils % 1.5 % (0.0-5.0) 01/29/18 19:32 Basophils % 0.7 % (0.0-2.0) 01/29/18 19:32 Sodium 137 mEq/L (136-145) 01/29/18 19:32 Potassium 3.5 mEq/L (3.5-5.1) 01/29/18 19:32 Chloride 104 mEq/L (98-107) 01/29/18 19:32 Carbon Dioxide 23.4 mEq/L (21.0-31.0) 01/29/18 19:32 Anion Gap 13.1 (7.0-16.0) 01/29/18 19:32 BUN 17 mg/dL (7-25) 01/29/18 19:32 Creatinine 0.6 mg/dL (0.6-1.2) 01/29/18 19:32 Est GFR ( Amer) TNP 01/29/18 19:32 Est GFR (Non-Af Amer) TNP 01/29/18 19:32 BUN/Creatinine Ratio 28.3 01/29/18 19:32 Glucose 106 mg/dL (70-105) H 01/29/18 19:32 Calcium 9.3 mg/dL (8.6-10.3) 01/29/18 19:32 Phosphorus 3.4 mg/dL (2.5-5.0) 01/29/18 19:32 Magnesium 2.1 mg/dL (1.9-2.7) 01/29/18 19:32 Total Bilirubin 0.4 mg/dL (0.3-1.0) 01/29/18 19:32 AST 17 U/L (13-39) 01/29/18 19:32 ALT 12 U/L (7-52) 01/29/18 19:32 Alkaline Phosphatase 57 U/L (34-104) 01/29/18 19:32 Total Protein 6.7 gm/dL (6.0-8.3) 01/29/18 19:32 Albumin 3.9 gm/dL (3.7-5.3) 01/29/18 19:32 Globulin 2.8 gm/dL 01/29/18 19:32 Albumin/Globulin Ratio 1.4 (1.0-1.8) 01/29/18 19:32 Triglycerides 73 mg/dL (<150) 01/30/18 06:26 Cholesterol 127 mg/dL (<200) 01/30/18 06:26 LDL Cholesterol Direct 50 mg/dL (75-193) L 01/30/18 06:26 HDL Cholesterol 59 mg/dL (23-92) 01/30/18 06:26 TSH 3.01 uIU/ml (0.34-5.60) 01/29/18 19:32 Urine Source CLEAN C 01/29/18 22:20 Urine Color YELLOW 01/29/18 22:20 Urine Clarity CLEAR (CLEAR) 01/29/18 22:20 Urine pH 6.5 (4.6 - 8.0) 01/29/18 22:20 Ur Specific [place] 1.020 (1.005-1.030) 01/29/18 22:20 Urine Protein NEGATIVE mg/dL (NEGATIVE) 01/29/18 22:20 Urine Glucose (UA) NEGATIVE mg/dL (NEGATIVE) 01/29/18 22:20 Urine Ketones NEGATIVE mg/dL (NEGATIVE) 01/29/18 22:20 Urine Blood NEGATIVE (NEGATIVE) 01/29/18 22:20 Urine Nitrate NEGATIVE (NEGATIVE) 01/29/18 22:20 Urine Bilirubin NEGATIVE (NEGATIVE) 01/29/18 22:20 Urine Urobilinogen 0.2 E.U./dL (0.2 - 1.0) 01/29/18 22:20 Ur Leukocyte Esterase NEGATIVE (NEGATIVE) 01/29/18 22:20 Urine RBC NONE SEEN /hpf (0-5) 01/29/18 22:20 Urine WBC 2-5 /hpf (0-5) 01/29/18 22:20 Ur Epithelial Cells FEW /lpf (FEW) 01/29/18 22:20 Urine Bacteria OCCASIONAL /hpf (NONE SEEN) 01/29/18 22:20 Urine Opiates Screen NEGATIVE (NEGATIVE) 01/29/18 20:12 Urine Methadone Screen NEGATIVE (NEGATIVE) 01/29/18 20:12 Ur Barbiturates Screen NEGATIVE (NEGATIVE) 01/29/18 20:12 Ur Tricyclics Screen NEGATIVE (NEGATIVE) 01/29/18 20:12 Ur Phencyclidine Scrn NEGATIVE (NEGATIVE) 01/29/18 20:12 Amphetamines Screen NEGATIVE (NEGATIVE) 01/29/18 20:12 U Methamphetamines Scrn NEGATIVE (NEGATIVE) 01/29/18 20:12 U Benzodiazepines Scrn NEGATIVE (NEGATIVE) 01/29/18 20:12 U Cocaine Metab Screen NEGATIVE (NEGATIVE) 01/29/18 20:12 U Cannabinoids Screen NEGATIVE (NEGATIVE) 01/29/18 20:12 - Physical Exam Vitals and I&O: Vital Signs Temp 97.5 F 02/03/18 04:56 Pulse 61 02/03/18 09:56 Resp 20 02/02/18 15:07 BP 151/70 02/03/18 09:56 Pulse Ox 97 02/02/18 15:07 Intake & Output 02/02/18 02/03/18 02/03/18 18:59 06:59 18:59 Intake Total 480 Balance 480 Intake: Oral 480 Other: # Voids 2 2 # Bowel Movements 0 Active Medications: Current Medications Al Hydrox/Mg Hydrox/Simethicone (Maalox) 30 ml PO Q6H PRN PRN Reason: GI DISTRESS Stop: 03/31/18 00:46 Amlodipine Besylate (Norvasc) 10 mg PO DAILY [facility] Stop: 03/31/18 08:59 Last Admin: 02/03/18 09:56 Dose: 10 mg Atorvastatin Calcium (Lipitor) 20 mg PO HS [facility]; Protocol Stop: 03/31/18 20:59 Last Admin: 02/02/18 20:46 Dose: 20 mg Benztropine Mesylate (Cogentin) 1 mg PO BID [facility] Stop: 03/31/18 08:59 Last Admin: 02/03/18 09:52 Dose: 1 mg Docusate Sodium (Colace) 250 mg PO DAILY [facility] Stop: 03/31/18 08:59 Last Admin: 02/03/18 09:52 Dose: 250 mg Lorazepam (Ativan) 0.5 mg PO Q4HR PRN; Protocol PRN Reason: Anxiety Stop: 03/01/18 00:35 Magnesium Hydroxide (Milk Of Magnesia) 30 ml PO DAILY PRN PRN Reason: Constipation Stop: 03/31/18 00:46 Multivitamins/Vitamin C (Theragran) 1 tab PO DAILY [facility] Stop: 03/31/18 08:59 Last Admin: 02/03/18 09:52 Dose: 1 tab Quetiapine Fumarate (Seroquel) 50 mg PO BID [facility]; Protocol Stop: 04/02/18 16:59 Last Admin: 02/03/18 09:52 Dose: 50 mg Zolpidem Tartrate (Ambien) 5 mg PO HS PRN PRN Reason: Insomnia Stop: 03/31/18 00:35 General: alert, other (irritable ) Neck: Supple Lungs: CTAB Cardiovascular: Normal S1, Normal S2 Abdomen: soft Extremities: clear, edema Neurological: no change, alert Internal Medicine Assmt/Plan - Assessment Assessment: psychosis htn hyperlipidemia insomnia oa - Plan Plan: as per psych will monitor Nutritional Asmnt/Malnutr-PDOC - Dietary Evaluation Malnutrition Findings (Please click <Entered> for more info): Nutritional Asmnt/Malnutrition Start: 02/02/18 13: 11 Text: Status: Complete Freq: Protocol: Document 02/02/18 13:11 QIAN (Rec: 02/02/18 13:26 QIAN [id number]) Nutritional Asmnt/Malnutrition Patient General Information Nutritional Screening Moderate Risk Diagnosis psychosis NOS Pertinent Medical Hx/Surgical Hx HTN, hyperlipidemia, osteoarthritis, psychosis, DM, schizophrenia Subjective Information Pt eating lunch in her room at time of visit and appears to have finished 90-100%. Pt is alert and calm. Pt states her food is good and she has no preferences. When asked about usual diet, pt states she follows a regular diet at home . Discussed CCHO diet w/ pt and she states she does not have diabetes. Nursing noted PO intake: 100%. Visually verified previous blood glucose test results in pt's chart to fall between 80-100 mg/dl. Current Diet Order/ Nutrition Support CCHO 45 gm Pertinent Medications lipitor, colace, theragran, seroquel Pertinent Labs 01/29: glucose 106 Nutritional Hx/Data Height 1.55 m Height (Calculated Centimeters) 154.9 Current Weight (lbs) 45.813 kg Weight (Calculated Kilograms) 45.8 Weight (Calculated Grams) 78998.8 [place] Body Weight 105 lb Body Mass Index (BMI) 19.1 Weight Status Approriate GI Symptoms GI Symptoms None Last BM 02/01 x 2 Difficult in: None Food Allergies No Usual diet at home regular diet per pt Skin Integrity/Comment: yoly sampson 22 Current %PO Good (75-100%) Estimated Nutritional Goals BEE in Kcals: Using Current wt Calories/Kcals/Kg 25-30 Kcals Calculated [id number] Protein: Using Current wt Protein g/k.0 Protein Calculated 46 g Fluid: ml [id number] (1 ml/kcal) Nutritional Problem No current Nutrition Prob Problem no nutrition dx at this time Malnutrition Alert Is there a minimum of two criteria No selected? Query Text:Check all the applicable criteria. A minimum of two criteria are recommended for diagnosis of either severe or non-severe malnutrition. Malnutrition Related to Morbid Obesity Malnutrition related to morbid obesity No Intervention/Recommendation Comments 1. Consider checking HgA1C to assess need for CCHO 45 gm diet 2. Monitor PO intake, wt, nutrition related labs, and skin integrity 3. F/U as low risk in 7 days, 02/09 Expected Outcomes/Goals Expected Outcomes/Goals 1. PO intake to continue meeting at least 75% of all meals 2. Wt stability, skin to remain intact, nutrition related labs to approach normal limits Reviewed by Gita Christianson RD
[2018-02-03] MEDS: Atorvastatin Calcium 10 MG TAB PO SCH (20:26)
[2018-02-04] MEDS: Benztropine 1 MG TAB PO SCH ×2 (09:53→17:32)
[2018-02-04] MEDS: Multivitamin Tab PO SCH (09:53)
--- NOTE | 2018-02-04 11:13 | Internal Medicine Prog Note ---
Internal Medicine Subjective - Subjective Service Date: 02/04/18 Patient is:: awake, confused, other Per staff patient has:: no adverse event, tolerating meds Internal Medicine Objective - Results Result Diagrams: 01/29/18 19:32 01/29/18 19:32 Recent Labs: Laboratory Last Values WBC 5.4 Th/cmm (4.8-10.8) 01/29/18 19:32 RBC 4.06 Mil/cmm (3.80-5.20) 01/29/18 19:32 Hgb 12.7 gm/dL (12-16) 01/29/18 19:32 Hct 37.8 % (41.0-60) L 01/29/18 19:32 MCV 93.0 fl (81-100) 01/29/18 19:32 MCH 31.4 pg (27.0-31.0) H 01/29/18 19:32 MCHC Differential 33.7 pg (28.0-36.0) 01/29/18 19:32 RDW 12.2 % (11.5-20.0) 01/29/18 19:32 Plt Count 309 Th/cmm (150-400) 01/29/18 19:32 MPV 6.9 fl 01/29/18 19:32 Neutrophils % 57.4 % (40.0-80.0) 01/29/18 19:32 Lymphocytes % 30.3 % (20.0-50.0) 01/29/18 19:32 Monocytes % 10.1 % (2.0-10.0) H 01/29/18 19:32 Eosinophils % 1.5 % (0.0-5.0) 01/29/18 19:32 Basophils % 0.7 % (0.0-2.0) 01/29/18 19:32 Sodium 137 mEq/L (136-145) 01/29/18 19:32 Potassium 3.5 mEq/L (3.5-5.1) 01/29/18 19:32 Chloride 104 mEq/L (98-107) 01/29/18 19:32 Carbon Dioxide 23.4 mEq/L (21.0-31.0) 01/29/18 19:32 Anion Gap 13.1 (7.0-16.0) 01/29/18 19:32 BUN 17 mg/dL (7-25) 01/29/18 19:32 Creatinine 0.6 mg/dL (0.6-1.2) 01/29/18 19:32 Est GFR ( Amer) TNP 01/29/18 19:32 Est GFR (Non-Af Amer) TNP 01/29/18 19:32 BUN/Creatinine Ratio 28.3 01/29/18 19:32 Glucose 106 mg/dL (70-105) H 01/29/18 19:32 Calcium 9.3 mg/dL (8.6-10.3) 01/29/18 19:32 Phosphorus 3.4 mg/dL (2.5-5.0) 01/29/18 19:32 Magnesium 2.1 mg/dL (1.9-2.7) 01/29/18 19:32 Total Bilirubin 0.4 mg/dL (0.3-1.0) 01/29/18 19:32 AST 17 U/L (13-39) 01/29/18 19:32 ALT 12 U/L (7-52) 01/29/18 19:32 Alkaline Phosphatase 57 U/L (34-104) 01/29/18 19:32 Total Protein 6.7 gm/dL (6.0-8.3) 01/29/18 19:32 Albumin 3.9 gm/dL (3.7-5.3) 01/29/18 19:32 Globulin 2.8 gm/dL 01/29/18 19:32 Albumin/Globulin Ratio 1.4 (1.0-1.8) 01/29/18 19:32 Triglycerides 73 mg/dL (<150) 01/30/18 06:26 Cholesterol 127 mg/dL (<200) 01/30/18 06:26 LDL Cholesterol Direct 50 mg/dL (75-193) L 01/30/18 06:26 HDL Cholesterol 59 mg/dL (23-92) 01/30/18 06:26 TSH 3.01 uIU/ml (0.34-5.60) 01/29/18 19:32 Urine Source CLEAN C 01/29/18 22:20 Urine Color YELLOW 01/29/18 22:20 Urine Clarity CLEAR (CLEAR) 01/29/18 22:20 Urine pH 6.5 (4.6 - 8.0) 01/29/18 22:20 Ur Specific [place] 1.020 (1.005-1.030) 01/29/18 22:20 Urine Protein NEGATIVE mg/dL (NEGATIVE) 01/29/18 22:20 Urine Glucose (UA) NEGATIVE mg/dL (NEGATIVE) 01/29/18 22:20 Urine Ketones NEGATIVE mg/dL (NEGATIVE) 01/29/18 22:20 Urine Blood NEGATIVE (NEGATIVE) 01/29/18 22:20 Urine Nitrate NEGATIVE (NEGATIVE) 01/29/18 22:20 Urine Bilirubin NEGATIVE (NEGATIVE) 01/29/18 22:20 Urine Urobilinogen 0.2 E.U./dL (0.2 - 1.0) 01/29/18 22:20 Ur Leukocyte Esterase NEGATIVE (NEGATIVE) 01/29/18 22:20 Urine RBC NONE SEEN /hpf (0-5) 01/29/18 22:20 Urine WBC 2-5 /hpf (0-5) 01/29/18 22:20 Ur Epithelial Cells FEW /lpf (FEW) 01/29/18 22:20 Urine Bacteria OCCASIONAL /hpf (NONE SEEN) 01/29/18 22:20 Urine Opiates Screen NEGATIVE (NEGATIVE) 01/29/18 20:12 Urine Methadone Screen NEGATIVE (NEGATIVE) 01/29/18 20:12 Ur Barbiturates Screen NEGATIVE (NEGATIVE) 01/29/18 20:12 Ur Tricyclics Screen NEGATIVE (NEGATIVE) 01/29/18 20:12 Ur Phencyclidine Scrn NEGATIVE (NEGATIVE) 01/29/18 20:12 Amphetamines Screen NEGATIVE (NEGATIVE) 01/29/18 20:12 U Methamphetamines Scrn NEGATIVE (NEGATIVE) 01/29/18 20:12 U Benzodiazepines Scrn NEGATIVE (NEGATIVE) 01/29/18 20:12 U Cocaine Metab Screen NEGATIVE (NEGATIVE) 01/29/18 20:12 U Cannabinoids Screen NEGATIVE (NEGATIVE) 01/29/18 20:12 - Physical Exam Vitals and I&O: Vital Signs Temp 98.2 F 02/04/18 06:57 Pulse 60 02/04/18 09:53 Resp 20 02/04/18 06:57 BP 139/75 02/04/18 09:53 Pulse Ox 98 02/04/18 06:57 Intake & Output 02/03/18 02/04/18 02/04/18 18:59 06:59 18:59 Intake Total 1200 120 Balance 1200 120 Intake: Oral 1200 120 Other: # Voids 2 # Bowel Movements 1 Active Medications: Current Medications Al Hydrox/Mg Hydrox/Simethicone (Maalox) 30 ml PO Q6H PRN PRN Reason: GI DISTRESS Stop: 03/31/18 00:46 Amlodipine Besylate (Norvasc) 10 mg PO DAILY [facility] Stop: 03/31/18 08:59 Last Admin: 02/04/18 09:53 Dose: 10 mg Atorvastatin Calcium (Lipitor) 20 mg PO HS [facility]; Protocol Stop: 03/31/18 20:59 Last Admin: 02/03/18 20:26 Dose: 20 mg Benztropine Mesylate (Cogentin) 1 mg PO BID [facility] Stop: 03/31/18 08:59 Last Admin: 02/04/18 09:53 Dose: 1 mg Docusate Sodium (Colace) 250 mg PO DAILY [facility] Stop: 03/31/18 08:59 Last Admin: 02/04/18 09:53 Dose: 250 mg Lorazepam (Ativan) 0.5 mg PO Q4HR PRN; Protocol PRN Reason: Anxiety Stop: 03/01/18 00:35 Magnesium Hydroxide (Milk Of Magnesia) 30 ml PO DAILY PRN PRN Reason: Constipation Stop: 03/31/18 00:46 Multivitamins/Vitamin C (Theragran) 1 tab PO DAILY [facility] Stop: 03/31/18 08:59 Last Admin: 02/04/18 09:53 Dose: 1 tab Quetiapine Fumarate (Seroquel) 50 mg PO BID [facility]; Protocol Stop: 04/02/18 16:59 Last Admin: 02/04/18 09:53 Dose: 50 mg Zolpidem Tartrate (Ambien) 5 mg PO HS PRN PRN Reason: Insomnia Stop: 03/31/18 00:35 General: alert, other (irritable ) Neck: Supple Lungs: CTAB Cardiovascular: Normal S1, Normal S2 Abdomen: soft Extremities: clear, edema Neurological: no change, alert Internal Medicine Assmt/Plan - Assessment Assessment: psychosis hdl htn - Plan Plan: cpm Nutritional Asmnt/Malnutr-PDOC - Dietary Evaluation Malnutrition Findings (Please click <Entered> for more info): Nutritional Asmnt/Malnutrition Start: 02/02/18 13: 11 Text: Status: Complete Freq: Protocol: Document 02/02/18 13:11 QIAN (Rec: 02/02/18 13:26 QIAN [id number]) Nutritional Asmnt/Malnutrition Patient General Information Nutritional Screening Moderate Risk Diagnosis psychosis NOS Pertinent Medical Hx/Surgical Hx HTN, hyperlipidemia, osteoarthritis, psychosis, DM, schizophrenia Subjective Information Pt eating lunch in her room at time of visit and appears to have finished 90-100%. Pt is alert and calm. Pt states her food is good and she has no preferences. When asked about usual diet, pt states she follows a regular diet at home . Discussed CCHO diet w/ pt and she states she does not have diabetes. Nursing noted PO intake: 100%. Visually verified previous blood glucose test results in pt's chart to fall between 80-100 mg/dl. Current Diet Order/ Nutrition Support CCHO 45 gm Pertinent Medications lipitor, colace, theragran, seroquel Pertinent Labs 01/29: glucose 106 Nutritional Hx/Data Height 5 ft 1 in Height (Calculated Centimeters) 154.9 Current Weight (lbs) 101 lb Weight (Calculated Kilograms) 45.8 Weight (Calculated Grams) 52171.8 [place] Body Weight 105 lb Body Mass Index (BMI) 19.1 Weight Status Approriate GI Symptoms GI Symptoms None Last BM 02/01 x 2 Difficult in: None Food Allergies No Usual diet at home regular diet per pt Skin Integrity/Comment: camilla yoly 22 Current %PO Good (75-100%) Estimated Nutritional Goals BEE in Kcals: Using Current wt Calories/Kcals/Kg 25-30 Kcals Calculated 0430-5171 Protein: Using Current wt Protein g/k.0 Protein Calculated 46 g Fluid: ml 6886-3083 (1 ml/kcal) Nutritional Problem No current Nutrition Prob Problem no nutrition dx at this time Malnutrition Alert Is there a minimum of two criteria No selected? Query Text:Check all the applicable criteria. A minimum of two criteria are recommended for diagnosis of either severe or non-severe malnutrition. Malnutrition Related to Morbid Obesity Malnutrition related to morbid obesity No Intervention/Recommendation Comments 1. Consider checking HgA1C to assess need for CCHO 45 gm diet 2. Monitor PO intake, wt, nutrition related labs, and skin integrity 3. F/U as low risk in 7 days, 02/09 Expected Outcomes/Goals Expected Outcomes/Goals 1. PO intake to continue meeting at least 75% of all meals 2. Wt stability, skin to remain intact, nutrition related labs to approach normal limits Reviewed by Gita Christianson RD
--- NOTE | 2018-02-05 04:31 | Discharge Summary ---
DATE OF DISCHARGE: 02/04/2018 FINAL DIAGNOSIS/PRIMARY DIAGNOSIS: Schizophrenia. SECONDARY DIAGNOSIS: Dementia with psychosis. REASON FOR HOSPITALIZATION: The patient was admitted to the hospital from [facility] because the patient was aggressive and had disorganized thoughts. HOSPITAL COURSE: The patient continued to be irritable and agitated. The patient also was confused. She also was suspicious and paranoid. The patient was given Seroquel and the dose was adjusted to 50 mg twice a day. Gradually, the patient's affect was brighter. The patient was less agitated and less irritable and the patient was discharged from the hospital back to [place]. Physical exam of the patient was basically within normal. The patient had no major medical problems while in the hospital and the blood work was basically within normal. AFTER-DISCHARGE PLANS: The patient discharged from the hospital back to [place] with plans to continue her treatment there. EXPECTED OUTCOME AFTER DISCHARGE: Fair if the patient continues to take her psychotropic medications and follow up with discharge plans. [facility]# [id number]
--- NOTE | 2018-02-05 04:33 | Progress Notes ---
DATE: SUBJECTIVE: Chart reviewed and the patient interviewed. Also discussed the patient's condition with the staff and reviewed records and labs. The patient is still severely anxious and is still in irritable mood. The patient also is still pacing up and down the unit and delusional. She also is still talking about her and stated being in the hospital. She also still needs lots of redirections. Otherwise, the patient is cooperative and compliant with taking her medications with no side effects of medications. ASSESSMENT: The patient is still agitated and psychotic. TREATMENT PLAN: We will continue to monitor behavior and condition closely. Also, continue to work on adjusting her psychotropic medications and follow up closely. JOB# [id number]
== END 2018-02-04 19:33 | DRG 885 ==
LOC: ER 19:04 → GERO 22:38
PROVIDERS: ADMIT Psychiatry & Neurology Psychiatry; ATTEND Psychiatry & Neurology Psychiatry
DX: F20.9 Schizophrenia, unspecified (principal); F03.90 Unspecified dementia, unspecified severity, without behavioral disturbance, psychotic disturbance, mood disturbance, and anxiety; F29 Unspecified psychosis not due to a substance or known physiological condition; I10 Essential (primary) hypertension; E78.5 Hyperlipidemia, unspecified; G47.00 Insomnia, unspecified; M19.90 Unspecified osteoarthritis, unspecified site; Z88.0 Allergy status to penicillin
CPT/HCPCS: 36415-UA; 80053-TC; 80061-TC; 80307; 81001-TC; 83036-90; 83735-TC; 84100-TC; 84443-TC; 85025-TC; Z7610

== ENCOUNTER 2019-05-25 18:28 | Inpatient (IN) | payer MEDICARE, MEDICAID ==
[2019-05-25 23:37] VITALS: BP 125/76
[2019-05-25] MEDS ORDERED: Maalox 30 mL Cup PO PRN (23:45)
[2019-05-25] MEDS ORDERED: Magnesium Hydroxide (MOM) 30 mL UDC PO PRN (23:45)
--- NOTE | 2019-05-26 07:40 | Psychiatric Evaluation ---
DATE OF SERVICE: PATIENT'S AGE: 83 SEX: Female. PHYSICIAN: Matthew Lai MD, MPH CHIEF COMPLAINT: Agitation and aggressive behavior. HISTORY OF PRESENT ILLNESS: The patient is an 83-year-old female who was admitted to the hospital after medically cleared in [facility]. The patient is residing in [facility]. According to the admission report, the patient became agitated and aggressive in the facility and she also has been disrobing and not able to follow any of the staff directions. She also has been in angry and irritable mood at times. Chart reviewed and the patient interviewed and discussed the patient's condition with the staff and reviewed records and labs. The patient told me that "I am and I live with my and spirits." The patient also after that told me that she lives in "[facility]." She also upon arrival to the hospital was screaming and yelling loud and staff had to reassure her and to monitor her. The patient also according to the report was disrobing in public and she was hallucinating. PAST PSYCHIATRIC HISTORY: The patient has history of dementia and psychosis. The patient has been taking Seroquel, Ativan, and Ambien p.r.n. History also of schizophrenia. PAST MEDICAL HISTORY: The patient has a history of hypertension as well as hyperlipidemia, diabetes mellitus, osteoarthritis. SOCIAL HISTORY: The patient said that she is , but has no children. 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 She denies any alcohol or any drug use. ALLERGIES: No known allergies. MENTAL STATUS EXAMINATION: The patient appears her stated age. [place] hair. Skinny. Answering questions, but in a confused state. Also seemed to be preoccupied. The patient denies any hallucinations, but seems to be preoccupied and paranoid. The patient denies any suicidal or homicidal ideations. The patient is alert and oriented to the situation, but not to the place or person. Impaired immediate and recent memories, but intact remote memory and she remembered her date. Poor insight and she does not know where she is at or what for. Poor judgment and she was disrobing in public. I am unable to assess her intelligence because of her forgetfulness and her memory issues. ASSESSMENT: Schizophrenic disorder by history. SECONDARY DIAGNOSES: Dementia, moderate, with psychotic features. TREATMENT PLAN: We will continue to monitor her condition and her behavior closely. Also, we will continue Seroquel and we will adjust the dose. ESTIMATED LENGTH OF STAY: 5-7 days. PATIENT'S STRENGTHS AND WEAKNESSES: The patient's strength is not clear at this time. Weakness is poor impulse control and inappropriate behavior. AFTER DISCHARGE PLAN: Outpatient treatment and followup in [place] and the patient [facility] [place] [facility]. [facility]# [id number]
[2019-05-26] MEDS: Multivitamin Tab PO SCH (09:05)
[2019-05-26] MEDS: Benztropine 1 MG TAB PO SCH ×2 (09:05→16:18)
--- NOTE | 2019-05-26 13:25 | History and Physical ---
History of Present Illness - HPI Chief Complaint: Patient was brought to [facility] from [facility] where she was medically cleared for evaluation due to Agitation and aggressive behavior. HPI: 83 y/o female patient was admitted to [facility] for evaluation due to Agitation and aggressive behavior. Patient was disrobing herself, yelling and being aggressive with staff at [facility]. Patient has history of Osteoarthritis, Hypertension, Diabetes, Hyperlipidemia, Dementia, Psychosis and Schizophrenia. Patient had a Psych evaluation and was diagnosed with Schizophrenic disorder, Dementia, history of Osteoarthritis, history of Hypertension and history of Diabetes. I will follow, treat and monitor patient. Patient will continue current treatment plan as ordered. Vital Signs: Last Vital Signs Temp 97.8 F 05/25/19 23:52 Pulse 72 05/25/19 23:52 Resp 20 05/25/19 23:52 BP 125/76 05/25/19 23:52 Pulse Ox 98 05/25/19 23:52 Past Medical History Cardiovascular: Report: HTN Pulmonary: Report: No Pertinent Hx SENIOR PRODUCER: Report: Dementia GI: Report: No Pertinent Hx Psych: Report: Schizophrenia Musculoskeletal: Report: Other (Intermittent joint pain, hx of OA.) Rheumatologic: Report: Other (OA.) Infectious Disease: Report: No Pertinent Hx Renal/: Report: No Pertinent Hx Endocrine: Report: Diabetes Dermatology: Report: No Pertinent Hx - Past Surgical History Past Surgical History: No pertinent Hx Family Medical History - Family Member Mother History Unknown: Yes Ethnicity: Non- Social History Smoke: No Alcohol: None Drugs: None Lives: [place] Domestic Violence: Negative Health Maintenance Health Maintenance: Other (Please see chart.) - Medications Home Medications: Home Medication Medication Instructions Recorded Type Al Hyd/Mg Hyd/Simethicone [Maalox] 30 ml PO Q6H PRN udc 02/04/18 Rx Atorvastatin Calcium [Lipitor] 20 mg PO HS tab 02/04/18 Rx Benztropine [Cogentin*] 1 mg PO BID tab 02/04/18 Rx Docusate Sodium [Colace] 250 mg PO DAILY sgl 02/04/18 Rx Lorazepam [Ativan] 0.5 mg PO Q4HR PRN tab 02/04/18 Rx Magnesium Hydroxide [Milk of 30 ml PO DAILY PRN udc 02/04/18 Rx Magnesia] Multivitamin [Theragran] 1 tab PO DAILY tab 02/04/18 Rx QUEtiapine Fumarate [SEROquel] 50 mg PO BID tab 02/04/18 Rx Zolpidem Tartrate [Ambien] 5 mg PO HS PRN tab 02/04/18 Rx amLODIPine Besylate [Norvasc*] 10 mg PO DAILY tab 02/04/18 Rx Other Medications: Please see medication reconciliation sheet. - Allergies Allergies/Adverse Reactions: Allergies Allergy/AdvReac Type Severity Reaction Status Date / Time Penicillins [PCN] Allergy Verified 09/09/17 16:38 Review of Systems - Review of Systems Review of Systems: Patient was admitted due to aggressive behavior and agitation. Constitutional: Report: No Significant Eyes: Report: No Significant ENT: Report: No Significant Respiratory: Report: No Significant Cardiovascular: Report: No Significant Gastrointestinal: Report: No Significant Genitourinary: Report: No Significant Musculoskeletal: Report: Other (Intermittent joint pain, hx of OA.) Skin: Report: No Significant Neurological: Report: Weakness, Confusion Physical Exam - Physical Exam HEENT: Report: Ears Nose Throat within normal limits Neck: Report: Within normal limits Cardiovascular Systems: Report: +s1/s2 noted, Regular, Rate and Rhythm Respiratory: Report: Breath Sounds are within normal limits Abdomen: Report: Non-tender to palpation Back: Report: Inspection of back is within normal limits. Extremities: Report: Other (Intermittent joint pain.) - Lab Results All Lab Results last 24 hours: Please see labs. - Assessment Assessment: Schizophrenic disorder. Dementia. History of Osteoarthritis. History of Hypertension. History of Diabetes. - Plan Plan: Continuation of care. Monitor Labs. Continue present meds as directed. Monitor vitals continue B/P meds as directed. Accu-check daily, Continue DM meds as directed. Monitor Diet/Nutritional support. Pain Management. Physical therapy/Occupational therapy prn. Safety precaution. Supportive care. Fall precaution, frequent nursing rounds, and as needed restraints to prevent fall. Continue collaborating with consulting specialists, case management and nursing team. Will Monitor patient and continue current treatment plan as ordered.
[2019-05-26] MEDS: Atorvastatin Calcium 10 MG TAB PO SCH (20:51)
[2019-05-27] MEDS: Multivitamin Tab PO SCH (08:18)
[2019-05-27] MEDS: Benztropine 1 MG TAB PO SCH ×2 (08:18→16:32)
--- NOTE | 2019-05-27 12:04 | Internal Medicine Prog Note ---
Internal Medicine Subjective - Subjective Service Date: 05/27/19 Patient seen and examined:: with staff, chart reviewed Patient is:: awake, verbal, agitated, confused Patient Complaints of:: other (Having mood swings/paranoia.) Per staff patient has:: no adverse event, no episodes of fall Internal Medicine Objective - Physical Exam Vitals and I&O: Vital Signs Temp 97.2 F 05/27/19 06:23 Pulse 73 05/27/19 08:18 Resp 20 05/27/19 06:23 BP 128/88 05/27/19 08:18 Pulse Ox 98 05/27/19 06:23 Intake & Output 05/26/19 05/27/19 05/27/19 18:59 06:59 18:59 Intake Total 1080 120 Balance 1080 120 Intake: Oral 1080 120 Other: # Voids 4 2 # Bowel Movements 0 0 Active Medications: Current Medications Al Hydrox/Mg Hydrox/Simethicone (Maalox) 30 ml PO Q6H PRN PRN Reason: GI DISTRESS Stop: 07/24/19 23:44 Amlodipine Besylate (Norvasc) 10 mg PO DAILY [facility] Stop: 07/25/19 08:59 Last Admin: 05/27/19 08:18 Dose: 10 mg Atorvastatin Calcium (Lipitor) 20 mg PO FRANKLYN; Protocol Stop: 07/25/19 20:59 Last Admin: 05/26/19 20:51 Dose: 20 mg Benztropine Mesylate (Cogentin) 1 mg PO BID [facility] Stop: 07/25/19 08:59 Last Admin: 05/27/19 08:18 Dose: 1 mg Docusate Sodium (Colace) 250 mg PO DAILY [facility] Stop: 07/25/19 08:59 Last Admin: 05/27/19 08:18 Dose: 250 mg Lorazepam (Ativan) 0.5 mg PO Q4HR PRN; Protocol PRN Reason: Anxiety Stop: 07/24/19 23:41 Last Admin: 05/27/19 08:18 Dose: 0.5 mg Magnesium Hydroxide (Milk Of Magnesia) 30 ml PO DAILY PRN PRN Reason: Constipation Stop: 07/24/19 23:44 Multivitamins/Vitamin C (Theragran) 1 tab PO DAILY [facility] Stop: 07/25/19 08:59 Last Admin: 05/27/19 08:18 Dose: 1 tab Quetiapine Fumarate (Seroquel) 50 mg PO BID [facility]; Protocol Stop: 07/25/19 08:59 Last Admin: 05/27/19 08:18 Dose: 50 mg Zolpidem Tartrate (Ambien) 5 mg PO HS PRN PRN Reason: Insomnia Stop: 07/24/19 23:44 Physical Exam: Patient needs to be monitored closely, patient is hallucinating, paranoid, very aggressive and confused. General: demented HEENT: NC/AT, PERRLA Neck: Supple, No JVD Lungs: CTAB Cardiovascular: RRR, Normal S1, Normal S2 Abdomen: soft, non-tender, non-distended Extremities: clear Neurological: disorganized Internal Medicine Assmt/Plan - Assessment Assessment: Schizophrenic disorder. Dementia. History of Osteoarthritis. History of Hypertension. History of Diabetes. - Plan Plan: Continuation of care. Monitor Labs. Continue present meds as directed. Monitor vitals continue B/P meds as directed. Accu-check daily, Continue DM meds as directed. Monitor Diet/Nutritional support. Psych management as per Psych. Pain Management. Physical therapy/Occupational therapy prn. Safety precaution. Supportive care. Fall precaution, frequent nursing rounds, and as needed restraints to prevent fall. Continue collaborating with consulting specialists, case management and nursing team. Will Monitor patient and continue present care management.
[2019-05-27] MEDS: Atorvastatin Calcium 10 MG TAB PO SCH (20:11)
--- NOTE | 2019-05-27 21:21 | Progress Notes ---
DATE: 05/27/2019 PSYCHIATRIC PROGRESS NOTE SUBJECTIVE: Chart reviewed and the patient interviewed. Also discussed the patient's condition with the staff and reviewed records and labs. The patient remains anxious and she is still pacing up and down the unit and wandering into other patient's rooms. The patient also is still delusional and actively responding to stimuli. Also, the patient when speaks, she seems to have pressured speech and is still exhibiting some manic behavior. At the same time, the patient is irritable and agitated and needs lots of redirections. At the same time, the patient has been making her needs known with no difficulty, but she is still agitated and irritable. ASSESSMENT: The patient is still psychotic and exhibiting manic behavior. TREATMENT PLAN: Continue to monitor her behavior and her condition closely. We will still continue adjusting psychotropic medications and work on behavioral modification. JOB# [id number]
[2019-05-28] MEDS: Multivitamin Tab PO SCH (09:55)
[2019-05-28] MEDS: Benztropine 1 MG TAB PO SCH ×2 (09:55→17:49)
--- NOTE | 2019-05-28 18:07 | Progress Notes ---
DATE: 05/28/2019 SUBJECTIVE: The patient was seen at the dining area. The patient appears to be guarded, suspicious, easily gets frustrated, poor impulse control, poor judgment, poor insight. Otherwise, patient appears to be in no acute distress. OBJECTIVE: VITAL SIGNS: Temperature 98, heart rate 63, blood pressure 130/61, respiration 18, 99% on room air. HEENT: Head is atraumatic and normocephalic. Eyes: Bilateral conjunctivae are clear. Bilateral pupils are equally round and reactive. NECK: Supple. No JVD. CARDIOVASCULAR: S1 and S2, without murmur. PULMONARY: Clear to auscultation. GASTROINTESTINAL: Soft and nontender without guarding. Positive bowel sounds. MUSCULOSKELETAL: No clubbing. No cyanosis noted. ASSESSMENT: 1. Schizophrenia. 2. Hypertension. 3. Hyperlipidemia. 4. Osteoarthritis. PLAN: We will continue to keep the patient inpatient to Psychiatric Unit. We will follow up with a psychiatrist to monitor patient's condition and behavior. We will put the patient on fall precautions. Treatment plans were discussed with the patient's nurse. Treatment plans were discussed with Dr. Oakley. JOB# [id number]
[2019-05-28] MEDS: Atorvastatin Calcium 10 MG TAB PO SCH (21:15)
--- NOTE | 2019-05-29 01:28 | Progress Notes ---
DATE: 05/28/[address] Lai. IDENTIFYING DATA: An 83-year-old female after medically being cleared at [facility] from [place]. She becomes very agitated and aggressive in facility, disrobing and not able to follow any staff directions. MEDICATIONS: Reconciliation reviewed. Benztropine 1 mg p.o. b.i.d., Seroquel 50 p.o. b.i.d. Today on [id number] evaluation, the patient presents in disorganized manner, does not know why she is here, does not know where she is. She continues to pace in the unit, needing a lot of redirection and observed to be responding, talking to herself while she is pacing through the unit. ASSESSMENT AND PLAN: Actively hallucinating. We will continue monitoring recent augmentation of the Seroquel and monitor the use of Cogentin, it could put her at risk of constipation, but also of disinhibition and worsening dementia symptoms. We will clarify by medical doctor history of EPS with Seroquel. JOB# [id number]
[2019-05-29] MEDS: Multivitamin Tab PO SCH (09:30)
--- NOTE | 2019-05-29 13:50 | Internal Medicine Prog Note ---
Internal Medicine Subjective - Subjective Patient is:: awake, verbal, agitated, confused Patient Complaints of:: other (Having mood swings/paranoia.) Per staff patient has:: no adverse event, no episodes of fall Internal Medicine Objective - Physical Exam Vitals and I&O: Vital Signs Temp 97.3 F 05/29/19 06:17 Pulse 62 05/29/19 09:28 Resp 20 05/29/19 06:17 BP 122/68 05/29/19 09:28 Pulse Ox 98 05/29/19 06:17 Intake & Output 05/28/19 05/29/19 05/29/19 17:59 06:59 18:59 Intake Total Balance Intake: Oral Other: # Voids # Bowel Movements Active Medications: Current Medications Al Hydrox/Mg Hydrox/Simethicone (Maalox) 30 ml PO Q6H PRN PRN Reason: GI DISTRESS Stop: 07/24/19 23:44 Amlodipine Besylate (Norvasc) 10 mg PO DAILY [facility] Stop: 07/25/19 08:59 Last Admin: 05/29/19 09:28 Dose: 10 mg Atorvastatin Calcium (Lipitor) 20 mg PO HS [facility]; Protocol Stop: 07/25/19 20:59 Last Admin: 05/28/19 21:15 Dose: 20 mg Docusate Sodium (Colace) 250 mg PO DAILY [facility] Stop: 07/25/19 08:59 Last Admin: 05/29/19 09:30 Dose: 250 mg Lorazepam (Ativan) 0.5 mg PO Q4HR PRN; Protocol PRN Reason: Anxiety Stop: 07/24/19 23:41 Last Admin: 05/27/19 16:32 Dose: 0.5 mg Magnesium Hydroxide (Milk Of Magnesia) 30 ml PO DAILY PRN PRN Reason: Constipation Stop: 07/24/19 23:44 Multivitamins/Vitamin C (Theragran) 1 tab PO DAILY [facility] Stop: 07/25/19 08:59 Last Admin: 05/28/19 09:55 Dose: 1 tab Quetiapine Fumarate (Seroquel) 50 mg PO BID [facility]; Protocol Stop: 07/25/19 08:59 Last Admin: 05/29/19 09:30 Dose: 50 mg Zolpidem Tartrate (Ambien) 5 mg PO HS PRN PRN Reason: Insomnia Stop: 07/24/19 23:44 Last Admin: 05/28/19 21:16 Dose: 5 mg General: demented, NAD HEENT: NC/AT, PERRLA Neck: Supple, No JVD Lungs: CTAB Cardiovascular: RRR, Normal S1, Normal S2 Abdomen: soft, non-tender, non-distended Extremities: clear Neurological: disorganized Internal Medicine Assmt/Plan - Assessment Assessment: Schizophrenia HTN Hyperlipidemia OA - Plan Plan: Continue current managements Monitor VS Monitor Labs Psych management per Psych Pain managment as needed. Monitor nutritional needs. Fall Precaution Continue collaboration with interdisciplinary team.
[2019-05-29] MEDS: Atorvastatin Calcium 10 MG TAB PO SCH (20:50)
--- NOTE | 2019-05-29 22:42 | Progress Notes ---
DATE: 05/29/[address] Lai. The patient wonders, paces. She goes into a corner, crouches. I am observing her and talking to her in regards to her emotions. She reports everything is okay, then walks away. Pacing, responding, thought blocking. ASSESSMENT AND PLAN: No EPS, tardive dyskinesia noted. We will discontinue the Cogentin as she is currently on low dose of the Seroquel and minimal risk of EPS. We are returning decision. Monitor for any changes after the discontinuation. JOB# [id number]
[2019-05-30] MEDS: Multivitamin Tab PO SCH (09:03)
--- NOTE | 2019-05-30 17:15 | Internal Medicine Prog Note ---
Internal Medicine Subjective - Subjective Service Date: 05/30/19 Patient is:: awake, verbal, agitated, confused Patient Complaints of:: other (Having mood swings/paranoia.) Per staff patient has:: no adverse event, no episodes of fall Internal Medicine Objective - Physical Exam Vitals and I&O: Vital Signs Temp 97.9 F 05/30/19 14:00 Pulse 69 05/30/19 14:00 Resp 18 05/30/19 14:00 BP 109/54 05/30/19 14:00 Pulse Ox 96 05/30/19 14:00 Intake & Output 05/29/19 05/30/19 05/30/19 18:59 06:59 18:59 Intake Total 900 120 Balance 900 120 Intake: Oral 900 120 Other: # Voids 3 # Bowel Movements 0 Active Medications: Current Medications Al Hydrox/Mg Hydrox/Simethicone (Maalox) 30 ml PO Q6H PRN PRN Reason: GI DISTRESS Stop: 07/24/19 23:44 Amlodipine Besylate (Norvasc) 10 mg PO DAILY [facility] Stop: 07/25/19 08:59 Last Admin: 05/30/19 09:03 Dose: 10 mg Atorvastatin Calcium (Lipitor) 20 mg PO HS [facility]; Protocol Stop: 07/25/19 20:59 Last Admin: 05/29/19 20:50 Dose: 20 mg Docusate Sodium (Colace) 250 mg PO DAILY [facility] Stop: 07/25/19 08:59 Last Admin: 05/30/19 09:02 Dose: 250 mg Lorazepam (Ativan) 0.5 mg PO Q4HR PRN; Protocol PRN Reason: Anxiety Stop: 07/24/19 23:41 Last Admin: 05/27/19 16:32 Dose: 0.5 mg Magnesium Hydroxide (Milk Of Magnesia) 30 ml PO DAILY PRN PRN Reason: Constipation Stop: 07/24/19 23:44 Multivitamins/Vitamin C (Theragran) 1 tab PO DAILY [facility] Stop: 07/25/19 08:59 Last Admin: 05/30/19 09:03 Dose: 1 tab Quetiapine Fumarate (Seroquel) 50 mg PO BID [facility]; Protocol Stop: 07/25/19 08:59 Last Admin: 05/30/19 16:27 Dose: 50 mg Zolpidem Tartrate (Ambien) 5 mg PO HS PRN PRN Reason: Insomnia Stop: 07/24/19 23:44 Last Admin: 05/29/19 20:50 Dose: 5 mg General: demented, NAD HEENT: NC/AT, PERRLA Neck: Supple, No JVD Lungs: CTAB Cardiovascular: RRR, Normal S1, Normal S2 Abdomen: soft, non-tender, non-distended Extremities: clear Neurological: disorganized Nutritional Asmnt/Malnutr-PDOC - Dietary Evaluation Malnutrition Findings (Please click <Entered> for more info): Nutritional Asmnt/Malnutrition Start: 05/30/19 16: 24 Text: Status: Complete Freq: Protocol: Document 05/30/19 16:24 SALVADOR (Rec: 05/30/19 16:30 SALVADOR [email or web address]) Nutritional Asmnt/Malnutrition Patient General Information Nutritional Screening Moderate Risk Diagnosis Psychosis Pertinent Medical Hx/Surgical Hx Osteoarthritis, HTN, Diabetes, Hyperlipidemia, Dementia, Psychosis, and Schizophrenia Subjective Information Pt is a 83-year-old female admitted on 05/24 d/t agitation and aggressive behavior. Pt is eating an estimated 70% of meals Per Meal/Nutrition Activity Record . Dietary is currently providing an estimated 1800 kcals and 90 gm Pro, per Pt PO intake this is providing an estimated 1260 kcals and 63gm Pro to meet 90% kcal and 100+% Pro needs- adequate. Spoke with pt. after lunch and introduced myself. Asked pt. if they were eating okay. Pt. was minimally responsive and incoherent. Spoke with pt. nurse Smith who stated pt. was eating well. Advised nurse about pt. high glucose level and asked the charge nurse Jakob to follow up with A1C, will monitor. Anthropometrics HT: 51 WT: 101 LB (45.90 kg) BMI: 19 (Normal) GI/ Skin Integrity GI: WNL, Soft BM: 05/27 x1 I/O: 1020/Not Noted Skin: WNL, Intact, Dryness Jorge: 21 Diet Order: NCS, 2GRM Estimated Energy Needs: ( Geriatric, CBW) 7811-3421 kcals (25-30 kcals/ kg) 46-55g Pro (1.0-1.2 g/kg) 6615-4074 ml (25-30 ml/kg) Current Diet Order/ Nutrition Support NCS, 2GRM Pertinent Medications Maalox (PRN) Lipitor, Colace, MOM (PRN), Theragran Pertinent Labs 05/24: Glucose 129 Nutritional Hx/Data Height 5 ft 1 in Height (Calculated Centimeters) 154.9 Current Weight (lbs) 101 lb Weight (Calculated Kilograms) 45.8 Weight (Calculated Grams) 83186.8 [place] Body Weight 105 % [place] Body Weight 96 Body Mass Index (BMI) 19.1 Weight Status Approriate GI Symptoms GI Symptoms None Last BM 05/27 x1 Skin Integrity/Comment: Skin: WNL, Intact, Dryness Jorge: 21 Current %PO Good (75-100%) Estimated Nutritional Goals BEE in Kcals: Using Current wt Calories/Kcals/Kg 25-30 Kcals Calculated 8309-7100 Protein: Using Current wt Protein g/k.0-1.2 Protein Calculated 46-55 Fluid: ml 8165-7689 ml (25-30 ml/kg) Nutritional Problem 1. Problem Problem Altered lab values Etiology endocrine dysfunction Signs/Symptoms: Glucose 129 mg/dL (05/24) Malnutrition Related to Morbid Obesity Malnutrition related to morbid obesity No Intervention/Recommendation Comments Continue NCS, 2GRM diet as tolerated. Expected Outcomes/Goals Expected Outcomes/Goals 1.PO intake to continue to meet 75% of estimated nutritional needs. 2.Monitor PO intake, wt, nutrition related labs to trend WNL. 3.F/U as moderate risk in 3-5 days, 06/01 06/04
[2019-05-30] MEDS: Atorvastatin Calcium 10 MG TAB PO SCH (20:27)
--- NOTE | 2019-05-30 21:05 | Progress Notes ---
DATE: 05/30/2019 PSYCHIATRIC PROGRESS NOTE SUBJECTIVE: Chart was reviewed and the patient interviewed. Also discussed the patient's condition with the staff and reviewed records and labs. The patient seems to be slightly depressed today and she is staying in her bed most of the time. The patient also is although having fair eye contact. She is still anxious and is still restless. She also denies any intention to harm herself or others, but she is today seems to be less manic. Otherwise, the patient is compliant with taking her medications with no side effects of medications. ASSESSMENT: The patient is still anxious and is still depressed and is still having mood swings. TREATMENT PLAN: Continue to monitor behavior and condition. Also, continue to work on adjusting her psychotropic medications. JOB# [id number]
[2019-05-31] MEDS: Multivitamin Tab PO SCH (08:21)
--- NOTE | 2019-05-31 16:06 | Internal Medicine Prog Note ---
Internal Medicine Subjective - Subjective Service Date: 05/31/19 Patient is:: awake, verbal, agitated, confused Patient Complaints of:: other (Having mood swings/paranoia.) Per staff patient has:: no adverse event, no episodes of fall Internal Medicine Objective - Physical Exam Vitals and I&O: Vital Signs Temp 97.4 F 05/31/19 06:29 Pulse 61 05/31/19 09:01 Resp 15 05/31/19 08:00 BP 114/49 05/31/19 09:01 Pulse Ox 99 05/31/19 06:29 Intake & Output 05/30/19 05/31/19 05/31/19 18:59 06:59 18:59 Intake Total 1200 360 Balance 1200 360 Intake: Oral 1200 360 Other: # Voids 3 2 # Bowel Movements 0 1 Active Medications: Current Medications Al Hydrox/Mg Hydrox/Simethicone (Maalox) 30 ml PO Q6H PRN PRN Reason: GI DISTRESS Stop: 07/24/19 23:44 Amlodipine Besylate (Norvasc) 10 mg PO DAILY [facility] Stop: 07/25/19 08:59 Last Admin: 05/31/19 09:01 Dose: Not Given Atorvastatin Calcium (Lipitor) 20 mg PO HS [facility]; Protocol Stop: 07/25/19 20:59 Last Admin: 05/30/19 20:27 Dose: 20 mg Docusate Sodium (Colace) 250 mg PO DAILY [facility] Stop: 07/25/19 08:59 Last Admin: 05/31/19 08:21 Dose: 250 mg Lorazepam (Ativan) 0.5 mg PO Q4HR PRN; Protocol PRN Reason: Anxiety Stop: 07/24/19 23:41 Last Admin: 05/27/19 16:32 Dose: 0.5 mg Magnesium Hydroxide (Milk Of Magnesia) 30 ml PO DAILY PRN PRN Reason: Constipation Stop: 07/24/19 23:44 Multivitamins/Vitamin C (Theragran) 1 tab PO DAILY [facility] Stop: 07/25/19 08:59 Last Admin: 05/31/19 08:21 Dose: 1 tab Quetiapine Fumarate (Seroquel) 50 mg PO BID [facility]; Protocol Stop: 07/25/19 08:59 Last Admin: 05/31/19 08:21 Dose: 50 mg Zolpidem Tartrate (Ambien) 5 mg PO HS PRN PRN Reason: Insomnia Stop: 07/24/19 23:44 Last Admin: 05/30/19 20:28 Dose: 5 mg General: demented, NAD HEENT: NC/AT, PERRLA Neck: Supple, No JVD Lungs: CTAB Cardiovascular: RRR, Normal S1, Normal S2 Abdomen: soft, non-tender, non-distended Extremities: clear Neurological: disorganized Internal Medicine Assmt/Plan - Assessment Assessment: Schizophrenia HTN Hyperlipidemia OA - Plan Plan: Continue current managements Monitor VS Monitor Labs Psych management per Psych Pain managment as needed. Monitor nutritional needs. Fall Precaution Continue collaboration with interdisciplinary team. Nutritional Asmnt/Malnutr-PDOC - Dietary Evaluation Malnutrition Findings (Please click <Entered> for more info): Nutritional Asmnt/Malnutrition Start: 05/30/19 16: 24 Text: Status: Complete Freq: Protocol: Document 05/30/19 16:24 SALVADOR (Rec: 05/30/19 16:30 SALVADOR [email or web address]) Nutritional Asmnt/Malnutrition Patient General Information Nutritional Screening Moderate Risk Diagnosis Psychosis Pertinent Medical Hx/Surgical Hx Osteoarthritis, HTN, Diabetes, Hyperlipidemia, Dementia, Psychosis, and Schizophrenia Subjective Information Pt is a 83-year-old female admitted on 05/24 d/t agitation and aggressive behavior. Pt is eating an estimated 70% of meals Per Meal/Nutrition Activity Record . Dietary is currently providing an estimated 1800 kcals and 90 gm Pro, per Pt PO intake this is providing an estimated 1260 kcals and 63gm Pro to meet 90% kcal and 100+% Pro needs- adequate. Spoke with pt. after lunch and introduced myself. Asked pt. if they were eating okay. Pt. was minimally responsive and incoherent. Spoke with pt. nurse Smith who stated pt. was eating well. Advised nurse about pt. high glucose level and asked the charge nurse Jakob to follow up with A1C, will monitor. Anthropometrics HT: 51 WT: 101 LB (45.90 kg) BMI: 19 (Normal) GI/ Skin Integrity GI: WNL, Soft BM: 05/27 x1 I/O: 1020/Not Noted Skin: WNL, Intact, Dryness Jorge: 21 Diet Order: NCS, 2GRM Estimated Energy Needs: ( Geriatric, CBW) 9225-5420 kcals (25-30 kcals/ kg) 46-55g Pro (1.0-1.2 g/kg) 2962-0481 ml (25-30 ml/kg) Current Diet Order/ Nutrition Support NCS, 2GRM Pertinent Medications Maalox (PRN) Lipitor, Colace, MOM (PRN), Theragran Pertinent Labs 05/24: Glucose 129 Nutritional Hx/Data Height 5 ft 1 in Height (Calculated Centimeters) 154.9 Current Weight (lbs) 101 lb Weight (Calculated Kilograms) 45.8 Weight (Calculated Grams) 62479.8 [place] Body Weight 105 % [place] Body Weight 96 Body Mass Index (BMI) 19.1 Weight Status Approriate GI Symptoms GI Symptoms None Last BM 05/27 x1 Skin Integrity/Comment: Skin: WNL, Intact, Dryness Jorge: 21 Current %PO Good (75-100%) Estimated Nutritional Goals BEE in Kcals: Using Current wt Calories/Kcals/Kg 25-30 Kcals Calculated 7705-2686 Protein: Using Current wt Protein g/k.0-1.2 Protein Calculated 46-55 Fluid: ml 8699-7693 ml (25-30 ml/kg) Nutritional Problem 1. Problem Problem Altered lab values Etiology endocrine dysfunction Signs/Symptoms: Glucose 129 mg/dL (05/24) Malnutrition Related to Morbid Obesity Malnutrition related to morbid obesity No Intervention/Recommendation Comments Continue NCS, 2GRM diet as tolerated. Expected Outcomes/Goals Expected Outcomes/Goals 1.PO intake to continue to meet 75% of estimated nutritional needs. 2.Monitor PO intake, wt, nutrition related labs to trend WNL. 3.F/U as moderate risk in 3-5 days, 06/01 06/04
--- NOTE | 2019-05-31 18:37 | Progress Notes ---
DATE: 05/31/2019 SUBJECTIVE: Chart was reviewed and the patient interviewed. Also discussed the patient's condition with the staff and reviewed records and labs. The patient is still guarded and withdrawn. She is interacting minimally with peers and with others. The patient also denies any auditory or visual hallucinations or delusions. The patient denies any suicide or homicide ideations. She is still forgetful and at times gets irritable and agitated, but no major behavioral problems. ASSESSMENT: The patient still needs close monitoring, although she seems to be slightly less manic. TREATMENT PLAN: Continue monitoring behavior and condition closely. Also, continue adjusting psychotropic medications and follow up with discharge plans. JOB# [id number]
[2019-05-31] MEDS ORDERED: Haloperidol Lactate 5 mg/mL 1mL Vial IM ONE (21:12)
[2019-05-31] MEDS: Atorvastatin Calcium 10 MG TAB PO SCH (22:08)
--- NOTE | 2019-06-01 06:43 | Progress Notes ---
DATE: 06/01/2019 SUBJECTIVE: Chart was reviewed and the patient interviewed. Also discussed the patient's condition with the staff and reviewed records and labs. The patient last night for no reason starting yelling and screaming and slamming the doors and became very angry, was yelling and screaming and threatening staff, "I will kill you." There is no explanation for her sudden behavior and sudden mood swings except both her bipolar as well as a new roommate that came to her room. The patient is still angry and she is still restless and still has severe mood swings. Otherwise, the patient is compliant with taking her medications. The patient yesterday has to be given emergency injection of Haldol, Ativan and Benadryl to calm her down. This morning, the patient seems to be calmer with no mood swings, but still unpredictable behavior. ASSESSMENT: The patient is still exhibiting manic behavior and severe mood swings. TREATMENT PLAN: Continue to monitor behavior and condition closely. Also, continue to work on her irritability as well as her agitation. Also, we will add Depakote 250 mg twice a day and we will monitor Depakote blood level. At the same time, we will work on behavioral modification. JOB# [id number]
[2019-06-01] MEDS: Multivitamin Tab PO SCH (09:18)
--- NOTE | 2019-06-01 13:42 | Internal Medicine Prog Note ---
Internal Medicine Subjective - Subjective Service Date: 06/01/19 Patient is:: awake, verbal, agitated, confused Patient Complaints of:: other (Having mood swings/paranoia.) Per staff patient has:: no adverse event, no episodes of fall Internal Medicine Objective - Physical Exam Vitals and I&O: Vital Signs Temp 0 F 06/01/19 06:39 Pulse 62 06/01/19 09:15 Resp 15 06/01/19 08:00 BP 135/60 06/01/19 09:15 Pulse Ox 99 05/31/19 06:29 Intake & Output 05/31/19 06/01/19 06/01/19 18:59 06:59 18:59 Intake Total 900 120 Balance 900 120 Intake: Oral 900 120 Other: # Voids 3 3 # Bowel Movements 1 0 Active Medications: Current Medications Al Hydrox/Mg Hydrox/Simethicone (Maalox) 30 ml PO Q6H PRN PRN Reason: GI DISTRESS Stop: 07/24/19 23:44 Amlodipine Besylate (Norvasc) 10 mg PO DAILY [facility] Stop: 07/25/19 08:59 Last Admin: 06/01/19 09:15 Dose: Not Given Atorvastatin Calcium (Lipitor) 20 mg PO HS [facility]; Protocol Stop: 07/25/19 20:59 Last Admin: 05/31/19 22:08 Dose: Not Given Divalproex Sodium (Depakote Dr) 250 mg PO BID [facility]; Protocol Stop: 07/31/19 08:59 Last Admin: 06/01/19 09:18 Dose: 250 mg Docusate Sodium (Colace) 250 mg PO DAILY [facility] Stop: 07/25/19 08:59 Last Admin: 06/01/19 09:18 Dose: 250 mg Lorazepam (Ativan) 0.5 mg PO Q4HR PRN; Protocol PRN Reason: Anxiety Stop: 07/24/19 23:41 Last Admin: 05/27/19 16:32 Dose: 0.5 mg Magnesium Hydroxide (Milk Of Magnesia) 30 ml PO DAILY PRN PRN Reason: Constipation Stop: 07/24/19 23:44 Multivitamins/Vitamin C (Theragran) 1 tab PO DAILY [facility] Stop: 07/25/19 08:59 Last Admin: 06/01/19 09:18 Dose: 1 tab Quetiapine Fumarate (Seroquel) 50 mg PO BID [facility]; Protocol Stop: 07/25/19 08:59 Last Admin: 06/01/19 09:19 Dose: 50 mg Zolpidem Tartrate (Ambien) 5 mg PO HS PRN PRN Reason: Insomnia Stop: 07/24/19 23:44 Last Admin: 05/30/19 20:28 Dose: 5 mg General: demented, NAD HEENT: NC/AT, PERRLA Neck: Supple, No JVD Lungs: CTAB Cardiovascular: RRR, Normal S1, Normal S2 Abdomen: soft, non-tender, non-distended Extremities: clear Neurological: disorganized Internal Medicine Assmt/Plan - Assessment Assessment: Schizophrenia HTN Hyperlipidemia OA - Plan Plan: Continue current managements Monitor VS Monitor Labs Psych management per Psych Pain managment as needed. Monitor nutritional needs. Fall Precaution Continue collaboration with interdisciplinary team. Nutritional Asmnt/Malnutr-PDOC - Dietary Evaluation Malnutrition Findings (Please click <Entered> for more info): Nutritional Asmnt/Malnutrition Start: 05/30/19 16: 24 Text: Status: Complete Freq: Protocol: Document 05/30/19 16:24 SALVADOR (Rec: 05/30/19 16:30 SALVADOR [email or web address]) Nutritional Asmnt/Malnutrition Patient General Information Nutritional Screening Moderate Risk Diagnosis Psychosis Pertinent Medical Hx/Surgical Hx Osteoarthritis, HTN, Diabetes, Hyperlipidemia, Dementia, Psychosis, and Schizophrenia Subjective Information Pt is a 83-year-old female admitted on 05/24 d/t agitation and aggressive behavior. Pt is eating an estimated 70% of meals Per Meal/Nutrition Activity Record . Dietary is currently providing an estimated 1800 kcals and 90 gm Pro, per Pt PO intake this is providing an estimated 1260 kcals and 63gm Pro to meet 90% kcal and 100+% Pro needs- adequate. Spoke with pt. after lunch and introduced myself. Asked pt. if they were eating okay. Pt. was minimally responsive and incoherent. Spoke with pt. nurse Smith who stated pt. was eating well. Advised nurse about pt. high glucose level and asked the charge nurse Jakob to follow up with A1C, will monitor. Anthropometrics HT: 51 WT: 101 LB (45.90 kg) BMI: 19 (Normal) GI/ Skin Integrity GI: WNL, Soft BM: 05/27 x1 I/O: 1020/Not Noted Skin: WNL, Intact, Dryness Jorge: 21 Diet Order: NCS, 2GRM Estimated Energy Needs: ( Geriatric, CBW) 5217-4228 kcals (25-30 kcals/ kg) 46-55g Pro (1.0-1.2 g/kg) 4423-1451 ml (25-30 ml/kg) Current Diet Order/ Nutrition Support NCS, 2GRM Pertinent Medications Maalox (PRN) Lipitor, Colace, MOM (PRN), Theragran Pertinent Labs 05/24: Glucose 129 Nutritional Hx/Data Height 5 ft 1 in Height (Calculated Centimeters) 154.9 Current Weight (lbs) 101 lb Weight (Calculated Kilograms) 45.8 Weight (Calculated Grams) 93213.8 [place] Body Weight 105 % [place] Body Weight 96 Body Mass Index (BMI) 19.1 Weight Status Approriate GI Symptoms GI Symptoms None Last BM 05/27 x1 Skin Integrity/Comment: Skin: WNL, Intact, Dryness Joreg: 21 Current %PO Good (75-100%) Estimated Nutritional Goals BEE in Kcals: Using Current wt Calories/Kcals/Kg 25-30 Kcals Calculated 2465-5636 Protein: Using Current wt Protein g/k.0-1.2 Protein Calculated 46-55 Fluid: ml 9812-4905 ml (25-30 ml/kg) Nutritional Problem 1. Problem Problem Altered lab values Etiology endocrine dysfunction Signs/Symptoms: Glucose 129 mg/dL (05/24) Malnutrition Related to Morbid Obesity Malnutrition related to morbid obesity No Intervention/Recommendation Comments Continue NCS, 2GRM diet as tolerated. Expected Outcomes/Goals Expected Outcomes/Goals 1.PO intake to continue to meet 75% of estimated nutritional needs. 2.Monitor PO intake, wt, nutrition related labs to trend WNL. 3.F/U as moderate risk in 3-5 days, 06/01 06/04
[2019-06-01] MEDS: Atorvastatin Calcium 10 MG TAB PO SCH (20:46)
--- NOTE | 2019-06-02 06:45 | Progress Notes ---
DATE: 06/02/2019 SUBJECTIVE: Chart reviewed and the patient interviewed. Also discussed the patient's condition with the staff and reviewed records and labs. The patient seems to be calmer and less irritable and less agitated yesterday and this morning. She is less irritable and decreased mood swings, but she does still has episodes of anger for no apparent reason. She also still at times seems to be suspicious and paranoid, especially about other patients. Otherwise, the patient continued to comply, was taking her medications with no side effects of medications. ASSESSMENT: The patient still has manic behavior and needs close monitoring. TREATMENT PLAN: Continue to monitor her behavior and her condition closely. Also, Depakote was added yesterday with no side effects. We will continue same dose and continue to follow up. JOB# [id number]
[2019-06-02] MEDS: Multivitamin Tab PO SCH (08:27)
[2019-06-02] MEDS: Atorvastatin Calcium 10 MG TAB PO SCH (21:03)
[2019-06-03] MEDS: Multivitamin Tab PO SCH (08:14)
--- NOTE | 2019-06-03 10:36 | Discharge Summary ---
DATE OF DISCHARGE: 06/03/2019 AGE: 83. SEX: Female. PHYSICIAN: Dr. Lai. FINAL DIAGNOSIS AND PRIMARY DIAGNOSIS: Schizoaffective disorder, manic episode, severe, with psychotic features. SECONDARY DIAGNOSIS: Dementia, moderate to severe, with psychotic features. REASON FOR HOSPITALIZATION: The patient was admitted to the hospital from [facility] because of increased irritability and also because of inability to follow directions and the patient was disrobing and easily irritable and agitated. HOSPITAL COURSE: The patient continued to be in irritable and angry mood. The patient also had episodes of slamming doors and aggressive with the staff. The patient was given Depakote and the dose of 250 mg twice a day and continued to take Seroquel in a dose of 50 mg twice a day. Gradually, the patient's affect was brighter. The patient was less irritable and less agitated. The patient also was interacting more appropriately and the patient was discharged from the hospital. Physical examination was basically within normal and the patient had no major medical problems while in the hospital and Dr. Oakley monitored her medications closely. The patient has diagnosis of osteoarthritis and hypertension as well as history of diabetes. AFTER DISCHARGE PLANS: The patient discharged from the hospital and went back to [facility]. Outpatient treatment will be done there. EXPECTED OUTCOME AFTER DISCHARGE: Fair if the patient continues to take her psychotropic medications and follow up with discharge plans. [facility]# [id number]
--- NOTE | 2019-06-03 14:12 | Internal Medicine Prog Note ---
Internal Medicine Subjective - Subjective Service Date: 06/03/19 Patient is:: awake, verbal, agitated, confused Patient Complaints of:: other (Having mood swings/paranoia.) Per staff patient has:: no adverse event, no episodes of fall Internal Medicine Objective - Physical Exam Vitals and I&O: Vital Signs Temp 97.8 F 06/03/19 10:58 Pulse 68 06/03/19 10:58 Resp 16 06/03/19 10:58 BP 122/66 06/03/19 10:58 Pulse Ox 98 06/03/19 10:58 Intake & Output 06/02/19 06/03/19 06/03/19 18:59 06:59 18:59 Intake Total 920 120 120 Balance 920 120 120 Intake: Oral 920 120 120 Other: # Voids 3 2 2 # Bowel Movements 1 0 0 Active Medications: Current Medications Al Hydrox/Mg Hydrox/Simethicone (Maalox) 30 ml PO Q6H PRN PRN Reason: GI DISTRESS Stop: 07/24/19 23:44 Amlodipine Besylate (Norvasc) 10 mg PO DAILY [facility] Stop: 07/25/19 08:59 Last Admin: 06/03/19 08:13 Dose: 10 mg Atorvastatin Calcium (Lipitor) 20 mg PO HS [facility]; Protocol Stop: 07/25/19 20:59 Last Admin: 06/02/19 21:03 Dose: 20 mg Divalproex Sodium (Depakote Dr) 250 mg PO BID [facility]; Protocol Stop: 07/31/19 08:59 Last Admin: 06/03/19 08:13 Dose: 250 mg Docusate Sodium (Colace) 250 mg PO DAILY [facility] Stop: 07/25/19 08:59 Last Admin: 06/03/19 08:14 Dose: 250 mg Lorazepam (Ativan) 0.5 mg PO Q4HR PRN; Protocol PRN Reason: Anxiety Stop: 07/24/19 23:41 Last Admin: 06/03/19 14:01 Dose: 0.5 mg Magnesium Hydroxide (Milk Of Magnesia) 30 ml PO DAILY PRN PRN Reason: Constipation Stop: 07/24/19 23:44 Multivitamins/Vitamin C (Theragran) 1 tab PO DAILY [facility] Stop: 07/25/19 08:59 Last Admin: 06/03/19 08:14 Dose: 1 tab Quetiapine Fumarate (Seroquel) 50 mg PO BID [facility]; Protocol Stop: 07/25/19 08:59 Last Admin: 06/03/19 08:14 Dose: 50 mg Zolpidem Tartrate (Ambien) 5 mg PO HS PRN PRN Reason: Insomnia Stop: 07/24/19 23:44 Last Admin: 06/02/19 21:04 Dose: 5 mg General: demented, NAD HEENT: NC/AT, PERRLA Neck: Supple, No JVD Lungs: CTAB Cardiovascular: RRR, Normal S1, Normal S2 Abdomen: soft, non-tender, non-distended Extremities: clear Neurological: disorganized Internal Medicine Assmt/Plan - Assessment Assessment: Schizophrenia HTN Hyperlipidemia OA - Plan Plan: Continue current managements Monitor VS Monitor Labs Psych management per Psych Pain managment as needed. Monitor nutritional needs. Fall Precaution Continue collaboration with interdisciplinary team. Nutritional Asmnt/Malnutr-PDOC - Dietary Evaluation Malnutrition Findings (Please click <Entered> for more info): Nutritional Asmnt/Malnutrition Start: 05/30/19 16: 24 Text: Status: Complete Freq: Protocol: Document 05/30/19 16:24 SALVADOR (Rec: 05/30/19 16:30 SALVADOR [email or web address]) Nutritional Asmnt/Malnutrition Patient General Information Nutritional Screening Moderate Risk Diagnosis Psychosis Pertinent Medical Hx/Surgical Hx Osteoarthritis, HTN, Diabetes, Hyperlipidemia, Dementia, Psychosis, and Schizophrenia Subjective Information Pt is a 83-year-old female admitted on 05/24 d/t agitation and aggressive behavior. Pt is eating an estimated 70% of meals Per Meal/Nutrition Activity Record . Dietary is currently providing an estimated 1800 kcals and 90 gm Pro, per Pt PO intake this is providing an estimated 1260 kcals and 63gm Pro to meet 90% kcal and 100+% Pro needs- adequate. Spoke with pt. after lunch and introduced myself. Asked pt. if they were eating okay. Pt. was minimally responsive and incoherent. Spoke with pt. nurse Smith who stated pt. was eating well. Advised nurse about pt. high glucose level and asked the charge nurse Jakob to follow up with A1C, will monitor. Anthropometrics HT: 51 WT: 101 LB (45.90 kg) BMI: 19 (Normal) GI/ Skin Integrity GI: WNL, Soft BM: 05/27 x1 I/O: 1020/Not Noted Skin: WNL, Intact, Dryness Jorge: 21 Diet Order: NCS, 2GRM Estimated Energy Needs: ( Geriatric, CBW) 5456-4310 kcals (25-30 kcals/ kg) 46-55g Pro (1.0-1.2 g/kg) 4713-8907 ml (25-30 ml/kg) Current Diet Order/ Nutrition Support NCS, 2GRM Pertinent Medications Maalox (PRN) Lipitor, Colace, MOM (PRN), Theragran Pertinent Labs 05/24: Glucose 129 Nutritional Hx/Data Height 5 ft 1 in Height (Calculated Centimeters) 154.9 Current Weight (lbs) 101 lb Weight (Calculated Kilograms) 45.8 Weight (Calculated Grams) 61188.8 [place] Body Weight 105 % [place] Body Weight 96 Body Mass Index (BMI) 19.1 Weight Status Approriate GI Symptoms GI Symptoms None Last BM 05/27 x1 Skin Integrity/Comment: Skin: WNL, Intact, Dryness Jorge: 21 Current %PO Good (75-100%) Estimated Nutritional Goals BEE in Kcals: Using Current wt Calories/Kcals/Kg 25-30 Kcals Calculated 6427-4224 Protein: Using Current wt Protein g/k.0-1.2 Protein Calculated 46-55 Fluid: ml 5130-9147 ml (25-30 ml/kg) Nutritional Problem 1. Problem Problem Altered lab values Etiology endocrine dysfunction Signs/Symptoms: Glucose 129 mg/dL (05/24) Malnutrition Related to Morbid Obesity Malnutrition related to morbid obesity No Intervention/Recommendation Comments Continue NCS, 2GRM diet as tolerated. Expected Outcomes/Goals Expected Outcomes/Goals 1.PO intake to continue to meet 75% of estimated nutritional needs. 2.Monitor PO intake, wt, nutrition related labs to trend WNL. 3.F/U as moderate risk in 3-5 days, 06/01 06/04
== END 2019-06-03 18:00 | DRG 885 ==
LOC: GERO 22:46
PROVIDERS: ADMIT Psychiatry & Neurology Psychiatry; ATTEND Psychiatry & Neurology Psychiatry
DX: F25.0 Schizoaffective disorder, bipolar type (principal); I10 Essential (primary) hypertension; E78.5 Hyperlipidemia, unspecified; E11.9 Type 2 diabetes mellitus without complications; Z88.0 Allergy status to penicillin; F03.90 Unspecified dementia, unspecified severity, without behavioral disturbance, psychotic disturbance, mood disturbance, and anxiety; Z79.84 Long term (current) use of oral hypoglycemic drugs
CPT/HCPCS: G0410; J1200; J1630; J2060; Z7610